=== PATIENT | female | born 1990 | race Caucasian/White ===

== ENCOUNTER 2022-06-09 14:34 | Emergency (ER) | payer OTHER, SELFPAY ==
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
[2022-06-09 14:35] VITALS: BP 132/90; PULSE 108; RESP 16; TEMP 37.2; O2SAT 98
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
== END 2022-06-09 16:10 | disposition home or self-care (01) ==
PROVIDERS: Emergency Provider Emergency Medicine; PCP Internal Medicine
DX: S09.90XA Unspecified injury of head, initial encounter (principal); S80.02XA Contusion of left knee, initial encounter; V43.52XA Car driver injured in collision with other type car in traffic accident, initial encounter
CPT/HCPCS: 70450; 99284

== ENCOUNTER → 2022-09-19 07:43 | Outpatient (CLI) | payer OTHER, BC, SELFPAY ==
--- NOTE | ~2022-09-19 | US_ITS ---
EXAMINATION: US OB <=14 wk fetus w TV DATE: 09/19/2022 08:24 INDICATION: Uncertain dates. . TECHNIQUE: Real-time transabdominal and transvaginal pelvic ultrasound was performed. COMPARISON: None. FINDINGS: TRANSABDOMINAL ULTRASOUND: The uterus measures 8.4 x 5.1 x 4.6 cm. TRANSVAGINAL ULTRASOUND: There is an intrauterine gestational sac. A yolk sac is identified. The fet al crown rump length measures 2 mm, which correlates with an estimated gestational age of 5 weeks and 5 day(s) (+/-) 4 day(s). heart motion is identified measuring 100 beats per minute (bpm) by M- mode Doppler. There is a nabothian cyst in the cervix. The right ovary measures 3.0 x 2.9 x 2.5 cm. T he left ovary measures 1.9 x 2.3 x 1.7 cm. There is no free fluid in the pelvis. IMPRESSION: 1. Single living intrauterine gestation with estimated date of delivery of 05/17/2023. Reviewed, dictated and finalized at location A. IMPRESSION: 1. Single living intrauterine gestation with estimated date of delivery of 05/06.
== END ==
PROVIDERS: PCP Internal Medicine; Visit Provider Obstetrics & Gynecology Gynecology
DX: Z36.87 Encounter for antenatal screening for uncertain dates (principal); Z3A.00 Weeks of gestation of pregnancy not specified
CPT/HCPCS: 76801; 76817

== ENCOUNTER → 2022-10-06 15:13 | Outpatient (CLI) | payer OTHER, BC, SELFPAY ==
--- NOTE | ~2022-10-06 | US_ITS ---
EXAMINATION: US OB <= 14 weeks fetus DATE: 10/06/2022 15:30 INDICATION: care during first trimester for patient with recurrent loss TECHNIQUE: Real-time pelvic ultrasound utilizing transabdominal probe was performed. The sumanth lockwood radiologist was not present for the study. COMPARISON: 09/19/2022 FINDINGS: The uterus measures 9.3 x 9.1 x 5.0 cm. There is an intrauterine gestational sac. A yolk sac and fet al pole are identified. The crown rump length measures 2.3 cm, which correlates with an estimated ges tational age of 9 weeks and 0 days. heart motion is identified measuring 171 beats per minute ( bpm) by M-mode Doppler. The right and left ovaries are not visualized. There is no free fluid in the pelvis. IMPRESSION: 1. Single living fetus heart rate of 171 bpm. 2. Gestational age by ultrasound of 9 weeks 0 day(s) +/- 6 day(s) with ultrasound estimated date of delivery (IRINEO) of 05/11/2023. Of note the IRINEO based upon the study from 2 weeks prior with 05/17/2023 nadine thomas review of the cine sequence on the prior imaging suggests the crown rump length that time may h ave been slightly underestimated. Reviewed, dictated and finalized at location A. IMPRESSION: 1. Single living fetus heart rate of 171 bpm. 2. Gestational age by ultrasound of 9 weeks 0 day(s) +/- 6 day(s) with ultraso und estimated date of delivery (IRINEO) of 05/11/2023. Of note the IRINEO based upon th e study from 2 weeks prior with 05/17/2023 however review of the cine sequence o n the prior imaging suggests the crown rump length that time may have been slig htly underestimated.
== END ==
PROVIDERS: PCP Obstetrics & Gynecology Gynecology; Visit Provider Obstetrics & Gynecology Gynecology
DX: O26.21 Pregnancy care for patient with recurrent pregnancy loss, first trimester (principal); Z3A.09 9 weeks gestation of pregnancy
CPT/HCPCS: 76801

== ENCOUNTER → 2022-12-11 14:55 | Outpatient (CLI) | payer OTHER, BC, SELFPAY ==
--- NOTE | ~2022-12-11 | US_ITS ---
EXAMINATION: US OB /maternal detail DATE: 12/11/2022 15:30 INDICATION: Second trimester anatomic survey TECHNIQUE: Real-time ultrasound of the pelvis was performed. COMPARISON: None. FINDINGS: There is a single living fetus in breech presentation. The placenta is anterior. heart rate is 149 beats per minute (bpm). cardiac activity and movement are noted. The amniotic fluid index is subjectively normal. The following anatomy was identified as normal: 4 chamber heart 3 vessel cord cord insertion kidneys urinary bladder stomach spine diaphragm ventricles cisterna magna cerebellum The following biometric data were obtained: Biparietal diameter (BPD): 3.9 cm; head circumference (HC): 15.2 cm; abdominal circumference (AC): 12 .6 cm; femur length (FL): 2.7 cm. These measurements are concordant. Estimated weight is 229 g +/- 34 g, which correlates with the 32 percentile when 05/11/2023 is us ed as estimated date of delivery. As single measurements, these parameters are each equal to the following estimated gestational ages w ith ranges of +/- 2 standard deviations: BPD: 18 weeks 0 days +/- 1 weeks 1 days. HC: 18 weeks 2 days +/- 1 weeks 3 days. AC: 18 weeks 2 days +/- 2 weeks 0 days. FL: 18 weeks 1 days +/- 1 weeks 3 days. estimated gestational age based solely on measurements from this exam is 18 weeks 1 days +/- 1 weeks 2 days. IMPRESSION: 1. Single living fetus in breech presentation. 2. Estimated weight is 229 g +/- 34 g, which correlates with the 32 percentile when 05/11/2023 is used as estimated date of delivery. Reviewed, dictated and finalized at location L. [place] [employer] IMPRESSION: 1. Single living fetus in breech presentation. 2. Estimated weight is 229 g +/- 34 g, which correlates with the 32 perce ntile when 05/11/2023 is used as estimated date of delivery.
== END ==
PROVIDERS: PCP Internal Medicine; Visit Provider Advanced Practice Midwife
DX: Z36.9 Encounter for antenatal screening, unspecified (principal); Z3A.18 18 weeks gestation of pregnancy
CPT/HCPCS: 76805

== ENCOUNTER 2023-04-16 19:45 | Outpatient (RCR) | payer OTHER, BC, SELFPAY ==
[2023-04-16 20:30] VITALS: BP 119/69; PULSE 86
== END 2023-07-15 23:59 | disposition home or self-care (01) ==
LOC: ANHOBOP 19:45
PROVIDERS: PCP Internal Medicine; Visit Provider Obstetrics & Gynecology Gynecology
DX: O36.8130 Decreased fetal movements, third trimester, not applicable or unspecified (principal); Z3A.36 36 weeks gestation of pregnancy
CPT/HCPCS: 59025

== ENCOUNTER 2023-05-07 02:11 | Inpatient (IN) | payer OTHER, BC, SELFPAY ==
[2023-05-07] VITALS (265 sets, daily range): BP systolic 83–155; BP diastolic 50–119; PULSE 62–196; RESP 16–18; TEMP 36.7–38.2; O2SAT 94–100; BMI 30.9
--- NOTE | 2023-05-07 02:11 | LDADM ---
This patient, Nicki Nair, was admitted to Labor/Delivery/Recovery 103 on 05/07/23 at 02:11. Plans for labor, pain management and were discussed with patient. Patient/family oriented to hospital policies and general routines including ID bracelet, bed and alarms, visiting hours, pain management, procedures, bathroom and other care routines, personal items, smoking policy, room service/diet and guest tray routines, security routines, and visiting hours. Patient/Family are encouraged to report perceived risks to care and to ask questions if they do not understand what they are told or what they should do. See OBIX for further documentation.
[2023-05-07] MEDS: LACTATED RINGERS 1,000 ML 125 ML IV CONT ×3 (04:13→13:17)
[2023-05-07 04:43] LABS: Basophils Absolute Auto 0.1 K/mm3 (0.0-0.1); Basophils Percent Auto 0.5 % (0.2-1.2); Eosinophils Absolute Auto 0.1 K/mm3 (0-0.3); Eosinophils Percent Auto 0.8 % (0-4.4); Hematocrit 36.4 % (37.0-47.0); Hemoglobin 11.2 g/dL (12.0-15.0); Immature Granulocyte Absolute 0.16 K/mm3 (0.00-0.031); Immature Granulocyte Percent A 1.2 % (0-0.5); Lymphocytes Absolute Auto 2.83 K/mm3 (0.9-3.2); Lymphocytes Percent Auto 21.9 % (18.3-44.2); Mean Corpuscular HGB Conc 30.8 g/dl (32-36); Mean Corpuscular Hemoglobin 25.1 pg (26-34); Mean Corpuscular Volume 81.4 fl (80-100); Mean Platelet Volume 11.6 fl (7.4-10.4); Monocytes Absolute Auto 1.3 K/mm3 (0.1-0.6); Neutrophils Absolute Auto 8.5 K/mm3 (1.3-6.7); Neutrophils Percent Auto 65.6 % (45.5-73.1); Platelet Count Result 238 k/mm3 (150-375); Red Blood Count 4.47 M/mm3 (4.2-5.4); Red Cell Distribution Width 14.5 % (11.5-14.5)
--- NOTE | 2023-05-07 05:02 | WPDANESEPP ---
Anes - Eval Pre Procedure Procedure: labor epidural Date/Time: 05/07/23 05:02 Surgeon: marek Preop Diagnosis: pain during labor Pre Op Diagnosis: CTX Patient Data Age: 32 Gender: F Height: 1.78 m Weight: 98 kg Last Vital Signs O2 Del Method Room Air 05/07/23 03:47 Allergies Allergy/AdvReac Type Severity Reaction Status Date / Time No Known Allergies Allergy Mild Verified 05/07/23 04:30 Home Medications Medication Instructions Recorded Confirmed Type prenat.vits,josette,sbx-[id number] 1 tablet PO DAILY 04/12/23 05/07/23 History docusate sodium 50 mg capsule 50 mg PO DAILY 05/07/23 05/07/23 History famotidine 20 mg tablet (Pepcid) 20 mg PO DAILY PRN Heartburn 05/07/23 05/07/23 History Laboratory Tests 05/07/23 03:56 WBC 13.0 H K/mm3 (4.5-10.0) RBC 4.47 M/mm3 (4.2-5.4) Hgb 11.2 L g/dL (12.0-15.0) Hct 36.4 L % (37.0-47.0) MCV 81.4 fl (80-100) MCH 25.1 L pg (26-34) MCHC 30.8 L g/dl (32-36) RDW 14.5 % (11.5-14.5) Plt Count 238 k/mm3 (150-375) MPV 11.6 H fl (7.4-10.4) Immature Gran % (Auto) 1.2 H % (0-0.5) Neut % (Auto) 65.6 % (45.5-73.1) Lymph % (Auto) 21.9 % (18.3-44.2) [place] % (Auto) 10.0 H % (2.6-8.5) Eos % (Auto) 0.8 % (0-4.4) Baso % (Auto) 0.5 % (0.2-1.2) Lymph # (Auto) 2.83 K/mm3 (0.9-3.2) [place] # (Auto) 1.3 H K/mm3 (0.1-0.6) Eos # (Auto) 0.1 K/mm3 (0-0.3) Baso # (Auto) 0.1 K/mm3 (0.0-0.1) Abs Immat Gran (auto) 0.16 H K/mm3 (0.00-0.031) Absolute Neuts (auto) 8.5 H K/mm3 (1.3-6.7) Absolute Nucleated RBC 0.000 K/mm3 (0.0-0.012) Nucleated RBC % 0.0 % (0.0-0.2) Sodium Pending Potassium Pending Chloride Pending Carbon Dioxide Pending Anion Gap Pending BUN Pending Creatinine Pending Estim Creat Clear Calc Pending Estimated GFR Pending Glucose Pending Uric Acid Pending Calcium Pending Total Bilirubin Pending AST Pending ALT Pending Alkaline Phosphatase Pending Total Protein Pending Albumin Pending RPR Pending HIV 1&2 Ab/P24 Ag 4thGn Pending Patient hx anesthesia problems: post op nausea/vomiting Family hx anesthesia problems: none Results Review: All pre-operative results and documents have been reviewed as part of the pre-operative evaluation. [facility] Past Medical History Medical History (Updated 05/07/23 @ 05:03 by Eduarda Lozaon CRNA) Healthy adult Hx of migraines IUP (intrauterine ), incidental Surgical History Surgical History (Updated 06/09/22 @ 16:06 by Toby Veliz MD) No history of previous surgery Family History Family History (Updated 04/12/23 @ 14:44 by Soraida Ahn RN) Other Patient denies significant medical history Social History Social History Smoking status: Never smoker Substance use: never Do You Feel Safe in your Home?: Yes Lack of Transportation: No Lack of Food: Never True Current Housing: I Have Housing Concerned About Future Housing: No Difficulty Paying Gas/Electric Bills: No Difficulty Paying for Meds: No Currently Unemployed: No Education: Bachelor's Degree Difficulty w/ Childcare or Family Care: No Spiritual care concerns: No Exam Day of Procedure 05/07/23 05:02
[2023-05-07 05:04] LABS: Alanine Aminotransferase 12 U/L (6-35); Albumin Level 3.6 g/dL (3.5-5.1); Alkaline Phosphatase 228 U/L (38-126); Anion Gap 3 mmol/L (4-12); Aspartate Amino Transferase 19 U/L (14-36); Bilirubin,Total 0.3 mg/dL (0.2-1.3); Blood Urea Nitrogen 11 mg/dL (7-17); Calcium 8.8 mg/dL (8.4-10.2); Carbon Dioxide 23 mmol/L (22-30); Chloride 106 mmol/L (98-107); Estimated CRCL calculation 125 ml/min; Estimated Glomerular Filt Rate > 60; Glucose 97 mg/dL (65-110); Potassium 3.9 mmol/L (3.4-5.0); Sodium 132 mmol/L (137-145)
[2023-05-07 05:06] LABS: Uric Acid 3.4 mg/dL (2.5-7.5)
[2023-05-07 05:40] LABS: HIV 1/2 Ab P24 Ag Result Negative (Negative)
--- NOTE | 2023-05-07 08:55 | WPDOBADMIT ---
Obstetrics - Admit Note Admission Note: record reviewed. No pertinent additions to the history and/or any subsequent changes in the physical findings that are not consistent with the expected course of the were found. Additions to the history and/or subsequent changes in the physical findings follow. None. The patient is here in active labor. She was now 6cm with spontaneous rupture of membranes. heart tones are category 1.
[2023-05-07] MEDS: OXYTOCIN 30 UNITS/NS 500 ML 30 UNITS/500 ML BAG IV CONT (10:29)
[2023-05-07] MEDS: ONDANSETRON INJ 4 MG/2 ML VIAL IV PUSH (15:06)
[2023-05-07 15:31] LABS: Rapid Plasma Reagin Non-Reactive (NonReactive)
[2023-05-07] MEDS: OXYTOCIN 30 UNITS/NS 500 ML 30 UNITS/500 ML BAG 125 UNITS IV CONT (19:44)
--- NOTE | 2023-05-07 20:49 | PM.OBPRVD ---
OB - Vaginal Delivery Note Procedure Delivery date: 05/07/23 Induction method: None Delivery augmentation: Pitocin Delivery monitor: External FHT and External Uterine Route of delivery: Laceration Description: Perineal - 2nd Degree Delivery repair: vicryl (3-0) Specimen: Yes (placenta) Quantitative Blood Loss (ml): 100 Anesthesia type: Epidural Disposition: Floor Complications: No immediate complications [place] Baby Date of : 05/07/23 Weeks of gestation at delivery: 39 Infant gender: Female presentation: vertex position: Left Occiput Anterior Placenta delivery description: Spontaneous Cord Vessel Description: 3 Vessels and Nuchal Cord score one minute: 8 score five minutes: 8
--- NOTE | 2023-05-07 20:50 | PM.OBDSVD ---
DS: Admitting Diagnosis Discharge Date 05/08/23 Admitting Diagnosis IUP 39 wks in labor DS: Discharge Diagnosis Discharge Diagnosis (1) (normal spontaneous vaginal delivery): Code(s): O80 - Encounter for full-term uncomplicated delivery Status: Acute OB - DS: Summary OB Procedures : Ultrasound OB Procedures Intrapartum: Spontaneous Vag Delivery OB Procedures: : None Peripartum Data Infant Delivery Method: Natural Vaginal Laceration Description: Perineal - 2nd Degree complications: none Status at Discharge Functional status at discharge: independent ambulation Overall status at discharge: patient is progressing back to baseline Time Spent with Patient Time attestation: Total time spent providing and/or coordinating discharge services: DS: Data Data Completed and Pending Pending studies at discharge: Pending at discharge 05/07/23 19:15 Surgical [PTH] Routine Labs on day of discharge: Labs from last 24 hours 05/07/23 03:56 WBC 13.0 H RBC 4.47 Hgb 11.2 L Hct 36.4 L MCV 81.4 MCH 25.1 L MCHC 30.8 L RDW 14.5 Plt Count 238 MPV 11.6 H Immature Gran % (Auto) 1.2 H Neut % (Auto) 65.6 Lymph % (Auto) 21.9 [place] % (Auto) 10.0 H Eos % (Auto) 0.8 Baso % (Auto) 0.5 Lymph # (Auto) 2.83 [place] # (Auto) 1.3 H Eos # (Auto) 0.1 Baso # (Auto) 0.1 Abs Immat Gran (auto) 0.16 H Absolute Neuts (auto) 8.5 H Absolute Nucleated RBC 0.000 Nucleated RBC % 0.0 Sodium 132 L Potassium 3.9 Chloride 106 Carbon Dioxide 23 Anion Gap 3 L BUN 11 Creatinine 0.70 Estim Creat Clear Calc 125 Estimated GFR > 60 Glucose 97 Uric Acid 3.4 Calcium 8.8 Total Bilirubin 0.3 AST 19 ALT 12 Alkaline Phosphatase 228 H Total Protein 7.0 Albumin 3.6 RPR Non-reactive HIV 1&2 Ab/P24 Ag 4thGn Negative Blood Type A Negative Antibody Screen Negative Discharge Plan Discharge Attending physician on discharge: Diana Gonzalez Discharging Clinician: Diana Gonzalez Anticipated Discharge Date/Time: 05/09/23 20:52 Patient Disposition: Home, Self-Care Activity: may shower and as tolerated Diet: regular Discharge Instructions: Education: Mom and Baby Guide Given to: Mother Follow-Up: Call your delivering provider's office for an appointment to be seen in: 6 Weeks Mom and baby should come to the [facility] for the follow-up appointment. Appointment Date/Time: May 09, 2023 at 10:00 am What to expect at your follow-up visit: Blood Pressure Check Physical Assessment Call [phone] if you are unable to keep your appointment time. BREAST CARE: * Wear a snug supportive bra. * For engorgement discomfort: Breast Feeding: * Apply warm moist washcloths * Express milk as needed to relieve engorgement * Wear loose clothing Bottle Feeding: * May apply ice packs * For sore nipples: * Identify correct latch-on * Apply warm moist washcloths before and after nursing * Air dry nipples after nursing * May apply Lansinoh cream to nipples EPISIOTOMY/PERINEAL CARE: * Until bleeding stops, use your loren bottle after urinating * Change your pad frequently throughout the day * You may take sitz baths several times a day (fill your bathtub with warm water and soak for 20 minutes.) Do NOT bathe in the water * No tub baths until seen by your physician - You may shower ACTIVITY: * Rest as much as possible. * Do not exercise or lift anything heavier than your baby (such as laundry or other children.) * Avoid stairs or driving as much as possible. * Do not put anything into the vagina. No douching, tampons, or sexual activity until seen by physician. NOTIFY PHYSICIAN IF YOU HAVE ANY QUESTIONS OR IF ANY OF THE FOLLOWING SYMPTOMS OCCUR: * If your episiotomy or incision becomes red, swollen, or more painful than what you have experienced in the hosp
[2023-05-07] MEDS: WITCH HAZEL 40 PADS 1 PAD TOPICAL (21:21)
[2023-05-07] MEDS: BENZOCAINE 20% AER SPR (*SP) 56 GM CAN 1 SPRAY TOPICAL (21:21)
--- NOTE | 2023-05-07 21:41 | OBPPTRN ---
Patient transferred to post room #285 via wheelchair. Support person present. Oriented to unit, room, information board, rooming in, admission packet and security measures. Patient verbalizes understanding.
[2023-05-07] MEDS: IBUPROFEN 600 MG TABLET PO (21:55)
[2023-05-08] MEDS: ACETAMINOPHEN 325 MG TABLET 650 MG PO (00:30)
[2023-05-08 04:05] VITALS: BP 126/79; PULSE 77; RESP 18; TEMP 36.6; O2SAT 96
[2023-05-08 04:45] LABS: Hematocrit 33.7 % (37.0-47.0); Hemoglobin 10.4 g/dL (12.0-15.0)
--- NOTE | 2023-05-08 07:43 | PM.OBPNVD ---
OB - PN: Subj Subjective Date/time seen: 05/08/23 07:43 Patient comments: no complaints and pain well controlled baby status: doing well OB - PN: Obj Data Labs 05/08/23 03:54 05/07/23 03:56 Labs: Laboratory Results - last 24 hr 05/07/23 05/08/23 03:56 03:54 Hgb 10.4 L Hct 33.7 L RPR Non-reactive OB - PN A/P Plan day: 1 Plan: routine care Time Spent With Patient Time: Total time spent is greater than 50% in coordination of care (as documented) at patient's floor/unit and/or counseling patient: Exam : Bimanual exam- vagina & uterus: other (Uterus firm, nt @U)
[2023-05-08 07:50] VITALS: BP 113/66; PULSE 72; RESP 16; TEMP 37; O2SAT 99
--- NOTE | 2023-05-08 08:15 | WPDANLDPN2 ---
Anes-Prog Note L&D Date/Time: 05/08/23 08:15 Comfortable throughout: labor and delivery Neuraxial method: epidural Epidural/Spinal procedure site: clean & non-tender Neuro status: Neuro function grossly intact. Cardiovascular status: normal Respiratory status: normal Airway patency: baseline Mental status: baseline Post-Op hydration status: normal Vital Signs: Last Vital Signs Temp 97.9 F 05/08/23 04:05 Pulse 77 05/08/23 04:05 Resp 18 05/08/23 04:05 BP 126/79 05/08/23 04:05 Pulse Ox 96 05/08/23 04:05 O2 Del Method Room Air 05/07/23 03:47 Pain score (VAS): 0/10 I/O: Intake & Output 05/07/23 05/08/23 05/08/23 23:59 07:59 15:59 Intake Total 1000 Output Total 100 Balance 900 Post-procedural complaints: none Patient feedback: Patient satisfied with anesthetic care.
[2023-05-08] MEDS: DOCUSATE SODIUM 100 MG CAPSULE PO (08:31)
[2023-05-08] MEDS: MULTIVIT/MIN/PREN/FOL AC/IRON TABLET 1 TAB PO (08:31)
[2023-05-08] MEDS: IBUPROFEN 600 MG TABLET PO (08:31)
--- NOTE | 2023-05-08 10:40 | PC.NURSE ---
Mom consented for baby to receive Vitamin K shot.
--- NOTE | 2023-05-08 11:08 | PC.NURSE ---
[id number] Introductions were made, then consulted with patient to assess needs related to . Mother led the conversation with her?plans to feed?her infant and the?experience so far. Encouraged understanding of the benefits of skin to skin (demonstrating unwrapping and placing upright on her chest), stimulating with massage touch, changing positions to encourage wakefulness, how to watch for early feeding cues, responsive feeding, feeding on demand (aiming for 8-12 times in 24 hours, about every 2-3 hours), milk production, hand expression, building/maintaining a milk supply, duration of feeding, signs of adequate intake/output and how to record on the feeding sheet. Mother works well with her infant with encouragement and education. Reviewed positioning and ear, shoulder, hip alignment, supporting the breast to facilitate a deep latch, asymmetrical latch (off-center), leading with the chin with a big, open, wide gape and body close to mother. latched optimally to the left, then right breast in cross cradle position, then left breast with football positioning. Education given to the parents of how to visualize the suckling (with good rocking jaw motion), swallows (dropping of the lower jaw) and how to listen for drinking at the breast (the ka sound) and infant demonstrated well. Infant was able to maintain latch without pain to mother protecting the nipple with optimal positioning and latching, however; the nipple was pinched after each latch. Mother shared it is uncomfortable but not painful and rates the pain 5 on 0-10 scale. Reviewed comfort measures of healing with a warm, wet washcloth to rinse breast, then leave open to air-dry, good handwashing when or touching the breast/nipples to prevent infection. Recommended switching positioning of the latch to prevent injury to the nipple. Mother voiced understanding of skin to skin, stimulating with massage touch, responsive feedings, hand expressed colostrum, talking to infant to encourage if it has been 2 -2.5 hours since the start of the last , to call if does not latch, or if there is discomfort with . Resources used for education were facilitated with the visual educational handouts/ tool/mom and baby guide. Inpatient/outpatient resources provided with feeding sheet, name written on the communication board, and the mom/baby guide. Parents voiced understanding of information, demonstrated learning and will call if there is a request for assistance. Patient encouraged to call for assistance with . Reported to the Primary RN.
[2023-05-09 09:47] VITALS: BP 131/76; PULSE 79; RESP 18; TEMP 36.6; O2SAT 100
== END 2023-05-08 11:30 | disposition home or self-care (01) | DRG 806 ==
LOC: ANHLDR 20:52 → ANHOB2 21:52
PROVIDERS: Admitting Provider Obstetrics & Gynecology Gynecology; PCP Internal Medicine; Visit Provider Obstetrics & Gynecology Gynecology
DX: O69.81X0 Labor and delivery complicated by cord around neck, without compression, not applicable or unspecified (principal); O75.2 Pyrexia during labor, not elsewhere classified; Z37.0 Single live birth; Z3A.39 39 weeks gestation of pregnancy; O70.1 Second degree perineal laceration during delivery; O63.1 Prolonged second stage (of labor)
CPT/HCPCS: 36415; 80053; 84550; 85014; 85018; 85025; 86592; 86703; 86850; 86900; 86901; 88307; A9270; G0432; J2405; J2590; J7120

== ENCOUNTER 2023-09-21 09:17 | Outpatient (CLI) | payer OTHER, BC, SELFPAY ==
--- NOTE | ~2023-09-21 | US_ITS ---
EXAMINATION: US OB <=14 wk fetus w TV DATE: 09/21/2023 10:08 INDICATION: Establish dating of first trimester with positive test TECHNIQUE: Real-time pelvic ultrasound utilizing both a transvaginal and transabdominal probe was pe rformed. The interpreting radiologist was not present for the study. COMPARISON: None. FINDINGS: The uterus measures 8.6 x 5.3 x 4.4 cm. There is an intrauterine gestational sac with double decidua l sign and subtle thin linear internal echogenic structure but without definitive yolk sac or p ole.The mean sac diameter measures 1 cm which correlates with an estimated gestational age of 5 weeks and 5 days. There is a 1.3 x 1.0 x 0.6 similar hypoechoic subchorionic hematoma along the anterior m argin of the gestational sac. The right ovary measures 2.7 x 2.5 x 2.3 cm. The left ovary measures 2.3 x 1.7 x 1.6 cm. Vascular marshall w identified in both ovaries on color Doppler There is no free fluid in the pelvis. IMPRESSION: 1. Single intrauterine gestational sac with double decidual sign but no definitive yolk sac or pole. Which could be due to early stage of or failed . Recommend follow-up with se rial beta-hCG levels and consider short interval repeat ultrasound. 2. Gestational age by ultrasound based upon mean sac diameter of 5 weeks 5 day(s) +/- 4 day(s) with ultrasound estimated date of delivery (IRINEO) of 05/18/2024. Reviewed, dictated and finalized at location A. IMPRESSION: 1. Single intrauterine gestational sac with double decidual sign but no definit jose yolk sac or pole. Which could be due to early stage of or f tiffanie . Recommend follow-up with serial beta-hCG levels and consider s hort interval repeat ultrasound. 2. Gestational age by ultrasound based upon mean sac diameter of 5 weeks 5 day (s) +/- 4 day(s) with ultrasound estimated date of delivery (IRINEO) of 05/18/2024.
== END 2023-09-21 09:18 ==
LOC: GOSHIMG 09:18
PROVIDERS: PCP Obstetrics & Gynecology Gynecology; Visit Provider Obstetrics & Gynecology Gynecology
DX: Z32.01 Encounter for pregnancy test, result positive (principal)
CPT/HCPCS: 76801; 76817

== ENCOUNTER 2023-10-01 11:18 | Outpatient (CLI) | payer OTHER, BC, SELFPAY ==
--- NOTE | ~2023-10-01 | US_ITS ---
EXAMINATION: US OB <=14 wk fetus w TV DATE: 10/01/2023 11:46 INDICATION: Recurrent loss. TECHNIQUE: Real-time transabdominal and transvaginal pelvic ultrasound was performed. COMPARISON: Ultrasound 09/21/2023 FINDINGS: TRANSABDOMINAL ULTRASOUND: The uterus measures 8.6 x 6.7 x 5.5 cm. TRANSVAGINAL ULTRASOUND: There is an intrauterine gestational sac. A yolk sac is identified. The fet al crown rump length measures 9 mm, which correlates with an estimated gestational age of 7 weeks and 0 day(s) (+/-) 4 day(s). heart motion is identified measuring 140 beats per minute (bpm) by M- mode Doppler. There is a small subchronic hematoma. The right ovary measures 2.7 x 2.7 x 1.8 cm. The left ovary measures 1.8 x 1.3 x 2.3 cm. There is no free fluid in the pelvis. IMPRESSION: 1. Single living intrauterine gestation with estimated date of delivery of 05/19/2024. 2. Small subchorionic hematoma. Reviewed, dictated and finalized at location A. IMPRESSION: 1. Single living intrauterine gestation with estimated date of delivery of 05/06. 2. Small subchorionic hematoma.
== END 2023-10-01 11:19 ==
LOC: GOSHIMG 11:19
PROVIDERS: PCP Obstetrics & Gynecology Gynecology; Visit Provider Obstetrics & Gynecology Gynecology
DX: O26.21 Pregnancy care for patient with recurrent pregnancy loss, first trimester (principal); Z3A.00 Weeks of gestation of pregnancy not specified
CPT/HCPCS: 76801; 76817

== ENCOUNTER 2023-10-30 15:27 | Outpatient (CLI) | payer OTHER, BC, SELFPAY ==
--- NOTE | ~2023-10-30 | US_ITS ---
EXAMINATION: US OB <= 14 weeks fetus DATE: 10/30/2023 16:00 INDICATION: Subchorionic hematoma during the late first trimester TECHNIQUE: Real-time pelvic ultrasound utilizing both a transvaginal and transabdominal probe was pe rformed. The interpreting radiologist was not present for the study. COMPARISON: None. FINDINGS: The uterus measures 12.9 x 10.0 x 7.7 cm. There is an intrauterine gestational sac with single livin g fetus. The crown rump length measures 5.0, which is concordant within 4 days of the previously jay mated gestational age of 11 weeks and 1 days. heart motion is identified measuring 155 beats pe r minute (bpm) by M-mode Doppler. No evident subchorionic hematoma. The bilateral ovaries are not vis ualized. There is no free fluid in the pelvis. IMPRESSION: 1. Single living fetus with heart rate of 155 bpm. No evident subchorionic hematoma. 2. [place]-rump length of 5.0 cm which is concordant within 4 days of the previously estimated gestatio nal age by ultrasound of 11 weeks 1 day with ultrasound estimated date of delivery (IRINEO) of 05/19/2024 . Reviewed, dictated and finalized at location A. IMPRESSION: 1. Single living fetus with heart rate of 155 bpm. No evident subchorioni c hematoma. 2. [place]-rump length of 5.0 cm which is concordant within 4 days of the previou sly estimated gestational age by ultrasound of 11 weeks 1 day with ultrasound e stimated date of delivery (IRINEO) of 05/19/2024.
== END 2023-10-30 15:28 | disposition home or self-care (01) ==
LOC: GOSHIMG 15:28
PROVIDERS: PCP Obstetrics & Gynecology Gynecology; Visit Provider Obstetrics & Gynecology Gynecology
DX: O36.8910 Maternal care for other specified fetal problems, first trimester, not applicable or unspecified (principal); Z3A.11 11 weeks gestation of pregnancy
CPT/HCPCS: 76801

== ENCOUNTER 2023-12-20 13:47 | Outpatient (CLI) | payer OTHER, BC, SELFPAY ==
--- NOTE | ~2023-12-20 | US_ITS ---
EXAMINATION: US OB /maternal detail DATE: 12/20/2023 14:32 INDICATION: anatomic survey. TECHNIQUE: Real-time ultrasound of the pelvis was performed. COMPARISON: Ultrasound 10/30/2023 FINDINGS: There is a single living fetus in vertex presentation. The cervical length is 3.8 cm on transabdomina l images, which is normal. The placenta is fundal, 8.1 cm from the cervix. heart rate is 139 be ats per minute (bpm). The amniotic fluid volume is subjectively normal. The following biometric data were obtained: Biparietal diameter (BPD): 4.5 cm; head circumference (HC): 17.1 cm; abdominal circumference (AC): 13 .1 cm; femur length (FL): 2.6 cm. These measurements are discordant with high HC/AC ratio. Estimated weight is 242 g +/- 36 g, which correlates with the 49th percentile when 05/19/24 is u sed as estimated date of delivery. As single measurements, these parameters are each equal to the following estimated gestational ages: BPD: 19 weeks 4 days. HC: 19 weeks 5 days. AC: 18 weeks 4 days. FL: 18 weeks 0 days. estimated gestational age based solely on measurements from this exam is 19 weeks 0 days +/- 1 weeks 2 days. The cerebral ventricles, cerebellum, cisterna magna, nuchal fold, and spine are normal. The heart is normal. The diaphragm, stomach, kidneys, and bladder are normal. There are two umbilical arteries to yield a 3-vessel cord. The cord insertion is normal. IMPRESSION: 1. Single living fetus in vertex presentation. 2. Estimated weight is 242 g +/- 36 g, which correlates with the 49th percentile when 05/19/24 is used as estimated date of delivery. This date was set by ultrasound on 10/01/23. 3. Discordant biometrics with high HC/AC ratio. 4. Normal anatomic survey. Reviewed, dictated and finalized at location A. JELLY IMPRESSION: 1. Single living fetus in vertex presentation. 2. Estimated weight is 242 g +/- 36 g, which correlates with the 49th pe rcentile when 05/19/24 is used as estimated date of delivery. This date was set by ultrasound on 10/01/23. 3. Discordant biometrics with high HC/AC ratio. 4. Normal anatomic survey.
== END 2023-12-20 13:48 | disposition home or self-care (01) ==
LOC: GOSHIMG 13:48
PROVIDERS: PCP Obstetrics & Gynecology Gynecology; Visit Provider Obstetrics & Gynecology Gynecology
DX: Z36.9 Encounter for antenatal screening, unspecified (principal)
CPT/HCPCS: 76805

== ENCOUNTER 2024-03-03 10:09 | Outpatient (RCR) | payer OTHER, BC, SELFPAY ==
[2024-03-03 10:45] LABS: Hematocrit 31.7 % (37.0-47.0); Hemoglobin 9.6 g/dL (12.0-15.0)
--- OUTSIDE RECORDS SUMMARY | 2024-03-03 11:06 | XMS_ITS | Referral Summary ---
Author Organization [facility] Building A Address [address] [place] [address] Care Team Providers Care Orthopedic Shoes Salesperson Name Role Phone Jose Raymundo MD Primary Care Provider Encounters Date Type Department Care Team Description 02/20/2024 Telephone [facility] Primary Care at [address] [phone] Jose Raymundo MD 02/19/2024 10:35 AM STEEL HEATER Lab [facility] [address] [place] [address] Goiter 02/19/2024 9:30 AM STEEL HEATER Office Visit [facility] Primary Care at [address] [phone] Jose Raymundo MD Annual physical exam (Primary Dx); BMI 28.0-28.9,adult; Migraine without aura and without status migrainosus, not intractable; Insulin controlled gestational diabetes mellitus (GDM) in second trimester; Goiter from Last 3 Months Allergies No known active allergies Medications butalbital-luis a taminophen-caf feine (FIORICET) 50-300-40 mg per capsule TAKE ONE CAPSULE BY MOUTH EVERY 6 HOURS NEEDED FOR HEADACHE 01/07/20 24 Active HumuLIN N 100 unit/mL (3 mL) pen for injection ADMINISTER 18 UNITS UNDER THE SKIN EVERY NIGHT AT BEDTIME. INCREASE BY 3 UNITS EVERY NIGHT UNTIL FASTING BLOOD SUGAR BELOW 90- 02/02/20 24 Active escitalopram (LEXAPRO) 10 mg tablet Take 1 tablet (10 mg total) by mouth daily 02/11/19 25 Active SUMAtriptan (IMITREX) 100 mg tablet TAKE 1 TABLET(100 MG) BY MOUTH 1 TIME NEEDED FOR MIGRAINE 9 tablet 11 10/29/19 24 025 Discontinued Active Problems Problem Noted Date Diagnosed Date History of 2019 novel coronavirus disease (COVID -19) 02/08/2021 RUQ pain 11/10/2020 Assessment & Plan (11/10/2020 2:28 PM CDT): Will get right upper quadrant ultrasound. We discussed watching fatty food intake. Difficult to point her symptoms to her gallbladder from her history but she was a little tender on exam. Will call patient with findings of ultrasound once obtained. Intrinsic eczema 02/04/2020 Migraine without aura and wi thout status migrainosus, not intractable 01/30/2019 Arachnoid cyst 12/08/2009 Resolved Problems Problem Noted Date Diagnosed Date Resolved Date Injury due to exposure to external cause 10/21/2014 01/30/2019 Infectious disease contact 10/21/2014 1 04/02/2018 Migraine 08/19/2013 01/30/2019 Overview (05/12/2016): MIGRNE UNSP WO NTRC MGRN Atypical migraine 03/16/2010 01/30/2019 Immunizations Name Administration Dates Next Due DTP 09/11/1994, 1,02/08/1990,1989,0 1989 Hep B, Adolescent or Pediatric 08/10/1999,1998,12/07/1998 HiB 10/01/1990,04/02/1990 Influenza, Unspecified 02/19/2024(Deferr ed: Patient Refused),02/10/2022(Deferred: Patient Refused),02/08/2021(Deferred: Patient Refused),02/08/2021(Deferred: Patient Refused),11/05/2020(Deferred: Patient Refused),10/05/2020(Deferred: Patient Refused),09/08/2020(Deferred: Patient Refused),02/04/2020(Deferred: Patient Refused),11/06/2019(Deferred: Patient Refused),01/30/2019(Deferred: Patient Refused),11/05/2018(Deferred: Patient Refused),01/25/2018(Deferred: Patient Refused),11/05/2017(Deferred: Patient Refused) MMR 09/11/1994,10/01/1990 OPV 09/11/1994,12/17/1990 Tdap 04/30/2007 Social History Tobacco Use Types Packs/Day Years Used Date Smoking Tobacco: Never Smokeless Tobacco: Never Tobacco Cessation:Counseling Given: Not Answered Alcohol Use Standard Drinks/Week Comments No 0 (1 standard drink = 0.6 oz pur e alcohol) AUDIT-C Answer Date Recorded Q1: How often do you have a drink containing alcohol? Never 02/14/2023 Q2: How many drinks containi ng alcohol do you have on a typical day when you are drinking? Patient does not drink Q3: How often do you have si x or more drinks on one occasion? Never 02/14/2023 PHQ-2 Answer Date Recorded PHQ-2 Total Score (If total score is 3 or more points, staff should administer the PHQ-9) 0 02/19/2024 Comments No Sex and Gender Information Value Date Recorded Sex Assigned at Not on file Legal Sex Female 9:01 AM STEEL HEATER Gender Identity Female 02/03/2020 7:22 PM STEEL HEATER Sexual Orientation Straight 02/03/2020 7: 22 PM STEEL HEATER Last Filed Vital Signs Vital Sign Reading Time Taken Comments Blood Pressure 132/70 02/19/2024 9:38 AM STEEL HEATER Pulse 84 02/19/2024 9:38 AM STEEL HEATER Temperature 36.6 ??C (97.8 ??F) 02/19/2024 9:38 AM CS T Respiratory Rate 16 02/19/2024 9:38 AM STEEL HEATER Oxygen Saturation 99% 02/19/2024 9:38 AM STEEL HEATER Inhaled Oxygen Concentration - - Weight 92.5 kg (204 lb) 02/19/2024 9:38 AM STEEL HEATER Height 180.3 cm (5' 11 ) 02/19/2024 9:38 AM STEEL HEATER Body Mass Index 28.45 02/19/2024 9:38 AM STEEL HEATER Plan of Treatment Not on file Procedures Procedure Name Priority Date/Time Associated Diagnosis Comments TSH Routine 02/19/2024 10:38 AM STEEL HEATER Goiter HM PAP SMEAR WITH HPV Routine 07/24/2019 from Last 3 Months or Most Recently Relevant to Health Maintenance Results * TSH (02/19/2024 10:38 AM STEEL HEATER) Thyroid Stimulating Hormone 1.20 0.30 - 4.20 mcIUnit/mL Blood 02/19/2024 10:3 8 AM STEEL HEATER 02/19/2024 11:06 AM STEEL HEATER Jose Raymundo MD LAB BLOOD ORDERABLES nal Result Performing Organization Address City/State/[facility] Co de Phone Number [facility] ([place]) [address] [facility] Department [place] [address] * HM PAP SMEAR WITH HPV (07/24/2019) Historical Provider HEALTH MAINTENANCE Final Result from Last 3 Months or Most Recently Relevant to Health Maintenance Insurance [facility] CHOICE PLUS Member Subscriber Plan / Payer (Ef fective 2016-Present) Name:STEPHANIE MELCHOR Relation to Subscriber:Self Name:Stephanie Potts Payer ID:[id number] (NAIC) Type:[facility] HMO/PPO Address: [address] [facility] CHOICE [place] [employer] [place] [employer] [place] [facility] [employer] Care Teams Orthopedic Shoes Salesperson Relationship Specialty Start Date End Date Jose Raymundo MD PCP - General 10/23/09
--- OUTSIDE RECORDS SUMMARY | 2024-03-03 11:06 | XMS_ITS | Clinical Summary ---
Author Organization [facility] Medical Office Building A Address [address] [place] [address] Care Team Providers Care Farm Service Adviser Name Role Phone Jose Raymundo MD Primary Care Provider Allergies No known active allergies Medications butalbital-luis [...] WO NTRC MGRN Atypical migraine 03/16/2010 01/30/2019 Encounters Date Type Department Care Team Description 02/20/2024 Telephone [facility] Primary Care at [address] [phone] Jose Raymundo MD 02/19/2024 10:35 AM SHAFT MECHANIC Lab [address] [phone] Goiter 02/19/2024 9:30 AM SHAFT MECHANIC Office Visit [facility] Primary Care at [address] [phone] Jose Raymundo MD Annual physical exam (Primary Dx); BMI 28.0-28.9,adult; Migraine without aura and without status migrainosus, not intractable; Insulin controlled gestational diabetes mellitus (GDM) in second trimester; Goiter from Last 3 Months Immunizations Name Administration Dates Next Due DTP 09/11/1994, 1,02/08/1990,1989,0 1989 Hep B, Adolescent or Pediatric 08/10/1999,1998,12/07/1998 HiB 10/01/1990,04/02/1990 Influenza, Unspecified 02/19/2024(Deferr ed: Patient Refused),02/10/2022(Deferred: Patient Refused),02/08/2021(Deferred: Patient Refused),02/08/2021(Deferred: Patient Refused),11/05/2020(Deferred: Patient Refused),10/05/2020(Deferred: Patient Refused),09/08/2020(Deferred: Patient Refused),02/04/2020(Deferred: Patient Refused),11/06/2019(Deferred: Patient Refused),01/30/2019(Deferred: Patient Refused),11/05/2018(Deferred: Patient Refused),01/25/2018(Deferred: Patient Refused),11/05/2017(Deferred: Patient Refused) MMR 09/11/1994,10/01/1990 OPV 09/11/1994,12/17/1990 Tdap 04/30/2007 Medical History Medical History Date Comments 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 Family History Medical History Relation Name Comments Other Brother 2 Alive and well; Other Father Alive and well; Hypertension Mother Hypertension; Cancer Mother's Sister Relation Name Status Comments Brother 1 Alive Brother 2 Father Alive Mother Mother's Sister Social History Tobacco Use Types Packs/Day Years [...] on file Legal Sex Female 9:01 AM SHAFT MECHANIC Gender Identity Female 02/03/2020 7:22 PM SHAFT MECHANIC Sexual Orientation Straight 02/03/2020 7: 22 PM SHAFT MECHANIC Obstetrics History Last Filed Vital Signs Vital Sign Reading Time Taken Comments Blood Pressure 132/70 02/19/2024 9:38 AM SHAFT MECHANIC Pulse 84 02/19/2024 9:38 AM SHAFT MECHANIC Temperature 36.6 ??C (97.8 ??F) 02/19/2024 9:38 AM CS T Respiratory Rate 16 02/19/2024 9:38 AM SHAFT MECHANIC Oxygen Saturation 99% 02/19/2024 9:38 AM SHAFT MECHANIC Inhaled Oxygen Concentration - - Weight 92.5 kg (204 lb) 02/19/2024 9:38 AM SHAFT MECHANIC Height 180.3 cm (5' 11 ) 02/19/2024 9:38 AM SHAFT MECHANIC Body Mass Index 28.45 02/19/2024 9:38 AM SHAFT MECHANIC Plan of Treatment Health Maintenance Due Date Last Done Comments Hepatitis C Screening 1989 Varicella Vaccines (1 of 2 - 13+ 2-dose series) 2002 DTaP/Tdap/Td Vaccine (7 - Td or Tdap) 04/29/2017 04/30/2007, 09/11/1994, 12/17/1990, Additional history exists Cervical Cancer Screening 07/23/2020 07/24/2019, Influenza Vaccine (#1) 2023 Depression Screening 02/18/2025 02/19/2024, 02/14/2023, 02/10/2022, Additional history exists Regular Well Visit/Exam 18-64 02/18/2025 02/19/2024, 02/14/2023, 02/10/2022, Additional history exists HPV Vaccines Aged Out No longer eligi ble based on patient's age to complete this topic Pneumococcal vaccine <65 Aged Out No longer eligible based on patient's age to complete this topic Procedures Procedure Name Priority Date/Time Associated Diagnosis Comments TSH Routine 02/19/2024 10:38 AM SHAFT MECHANIC Goiter HM PAP SMEAR WITH HPV Routine 07/24/2019 from Last 3 Months or Most Recently Relevant to Health Maintenance Results * TSH (02/19/2024 10:38 AM SHAFT MECHANIC) Thyroid Stimulating Hormone 1.20 0.30 - 4.20 mcIUnit/mL Blood 02/19/2024 10:3 8 AM SHAFT MECHANIC 02/19/2024 11:06 AM SHAFT MECHANIC us Jose Raymundo MD LAB BLOOD ORDERABLES Fi nal Result [facility]) 1 [facility] Department [place] [address] * HM PAP SMEAR WITH HPV (07/24/2019) us Historical Provider HEALTH MAINTENANCE Final Result from Last 3 Months or Most Recently Relevant to Health Maintenance Insurance [facility] CHOICE PLUS Member Subscriber Plan / Payer (Ef fective 2016-Present) Name:STEPHANIE MELCHOR Relation to Subscriber:Self Name:Stephanie Potts Payer ID:[id number] (NAIC) Type:[employer] HMO/PPO Address: [address] [facility] CHOICE PLUS [employer] [place] [place] [employer] [place] [place] Member Subscriber Plan / Payer (Ef fective 2019-Present) Name:Stephanie Potts Relation to Subscriber:Spouse Name:CECY POTTS Date of :1986 (Home) Address: [address] [place] [address] Payer ID:[id number] (NAIC) Type:BC OTHER Address: [id number] [employer] Care Teams Farm Service Adviser Relationship Specialty Start Date End Date Jose Raymundo MD PCP - General 10/23/09
--- OUTSIDE RECORDS SUMMARY | 2024-03-03 11:06 | XMS_ITS | Clinical Summary ---
Author Organization [facility] Address [address] [place] [address] Phone Care Team Providers Care Electricity Trading Analyst Name Role Phone Unavailable Primary Care Provider Unavailabl e Encounters Date Type Department Care Team Description 02/28/2024 9:48 AM CLIPPER OPERATOR - 02/28/2024 11:59 PM CLIPPER OPERATOR Hospital Encounter [facility]lee Heck [address] [place] [phone] Liam Marin MD Discharge Disposition: Home or Self Care 02/28/2024 External Device Data STL ABSTRACTION Provider, Abstract 02/27/2024 External Device Data STL ABSTRACTION Provider, Abstract 02/26/2024 External Device Data STL ABSTRACTION Provider, Abstract 02/19/2024 External Device Data STL ABSTRACTION Provider, Abstract 01/31/2024 12:58 PM CLIPPER OPERATOR - 01/31/2024 11:59 PM CLIPPER OPERATOR Hospital Encounter [facility] Haylee Heck [address] [place] [phone] Diana Gonzalez MD Discharge Disposition: Home or Self Care 01/31/2024 12:57 PM CLIPPER OPERATOR - 01/31/2024 11:59 PM CLIPPER OPERATOR Hospital Encounter [facility] Haylee Heck [address] [place] [phone] Liam Marin MD Discharge Disposition: Home or Self Care 01/01/2024 External Device Data STL ABSTRACTION Provider, Abstract 12/27/2023 2:15 PM CLIPPER OPERATOR - 12/27/2023 11:59 PM CLIPPER OPERATOR Hospital Encounter [facility] [address] [place] [address] Diana Gonzalez MD Discharge Disposition: Home or Self Care from Last 3 Months Social History Tobacco Use Types Packs/Day Years Used Date Smoking Tobacco: Never Assessed Comments Unknown Sex and Gender Information Value Date Recorded Sex Assigned at Female 12/27/2023 4:17 PM CLIPPER OPERATOR Legal Sex Female 2:40 PM CLIPPER OPERATOR Gender Identity Female 12/27/2023 4:17 PM CLIPPER OPERATOR Sexual Orientation Straight 12/27/2023 4: 17 PM CLIPPER OPERATOR Plan of Treatment Upcoming Encounters Date Type Department Care Team (Late st Contact Info) Description 03/27/2024 10:00 AM CLIPPER OPERATOR Appointment [facility] Haylee Heck [address] [place] [phone] Liam Marin MD [address] [phone] Health Maintenance Due Date Last Done Comments DTAP/TDAP/TD VACCINES (7 - Td or Tdap) 04/29/2017 04/30/2007, 09/11/1994, 12/17/1990, Additional history exists CERVICAL CANCER SCREENING 06/29/2019 INFLUENZA VACCINE (#1) 2023 HEPATITIS B VACCINES Completed 08/10/1999, 01/04/1999, 12/07/1998 HPV VACCINES Aged Out No longer eligi ble based on patient's age to complete this topic Procedures Procedure Name Priority Date/Time Associated Diagnosis Comments US OB FOLLOW UP PER FETUS Routine 02/28/2024 10:15 AM CLIPPER OPERATOR Insulin controlled gestational diabetes mellitus (GDM) during , antepartum ECHO 2D + COLOR FLOW VELOCITY Routine 01/31/2024 2:16 PM CLIPPER OPERATOR Encounter for screening for malformation Gestational diabetes mellitus (GDM) affecting US OB FOLLOW UP PER FETUS Routine 01/31/2024 2:14 PM CLIPPER OPERATOR Insulin controlled gestational diabetes mellitus (GDM) during , antepartum US OB DETAIL SINGLE GEST Routine 12/27/2023 3:21 PM CLIPPER OPERATOR Encounter for screening for malformation Gestational diabetes mellitus (GDM) affecting from Last 3 Months Results * US OB FOLLOW UP PER FETUS (02/28/2024 10:15 AM CLIPPER OPERATOR) Only the most recent of2 resultswithin the time period is included. Anatomical Region Laterality Modality Pelvis Ultrasound 02/28/2024 9:51 AM CLIPPER OPERATOR Narrative 02/28/2024 10:21 AM CLIPPER OPERATOR STL FOLLOW UP ----- Pat. Name: NICKI POTTS Study Date: 02/28/2024 9:51am Pat. NO: [id number] Referring ??MD: DIANA GONZALEZ MD Site: [facility] Operator: Stephanie Gordon RDMS : 1990 Age: 33 ----- INDICATION ----- Screening Follow-Up Gestational Diabetes, Insulin Controlled Anxiety, Maternal CODING ----- Diagnoses ? Z3A.29: Weeks of gestation ?O99.343: Other mental disorders complicating ?O24.414: Gestational diabetes mellitus in , insulin controlled ?Z36.3: Encounter for screening for malformations ?Z3A.29: Weeks of gestation ?O99.343: Other mental disorders complicating ?Z36.2: Encounter for other screening follow-up Procedures ?25809: Ultrasound, uterus, real time with image documentation, follow up, transabdominal ?approach per fetus HISTORY ----- OB History ? 2. Para 1 ?T1L1 MATERNAL ASSESSMENT ----- Physical Exam ? Weight 91 kg. BMI 28.70 kg/m?? METHOD ----- Transabdominal ultrasound examination ----- Santa . Number of fetuses: 1 DATING ----- GA by prior assessment 29 w + 0 d IRINEO by prior assessment: 05/15/2024 Ultrasound examination on: 02/28/2024 GA by U/S based upon: AC, BPD, EFW, Femur, HC GA by U/S 30 w + 1 d IRINEO by U/S: 05/07/2024 Method of dating: Restore dating from previous exam Assigned: based on stated IRINEO, selected on 12/27/2023 Assigned GA 29 w + 0 d Assigned IRINEO: 05/15/2024 BIOMETRY ----- BPD ?74.9 ? mm ?30w 0d ?71% ?Hadlock OFD ?104.1 ?mm ?34w 0d ?>99% ?Naeem HC ? 287.7 ?mm ?31w 4d ?89% ?Hadlock AC ? 274.0 ?mm ?31w 3d ?96% ?Hadlock Femur ?52.6 ? mm ?28w 0d ?12% ?Hadlock HC / AC ?1.05 ? 27% ?Nicolaides Weight Calculation: EFW ? 1,547 ? g ? 30w 0d ?82% ?Hadlock EFW (lb,oz) ? 3 lb 7 ?oz EFW by ?Hadlock ([id number]) Head / Face / Neck Biometry: Exterminator Helper Termite ? 5.8 ? mm Extremities / Bony Struc Biometry: FL / BPD ?0.70 FL / HC ? 0.18 FL / AC ? 0.19 GENERAL EVALUATION ----- Cardiac activity present. FHR 134 bpm. movements: present. Presentation: breech Placenta: Placental site: right lateral Umbilical cord: Cord vessels: 3 vessel cord. Insertion site: placental insertion: normal Amniotic fluid: Amount of AF: normal amount. MVP 6.0 cm. FAB 17.8 cm. Q1 2.8 cm, Q2 6.0 cm, Q3 4.1 cm, Q4 4.9 cm ANATOMY ----- The following structures appear normal: Head / Neck ? Cranium. Lateral ventricles. Choroid plexus. Midline falx. Cavum septi pellucidi. Cerebellum. Cisterna ?magna. Heart / Thorax ?4-chamber view. RVOT view. ?Diaphragm. Abdomen ? Stomach. Kidneys. Bladder. GROWTH OVERVIEW ----- Exam date ? GA ?BPD (mm) ? HC (mm) ?AC (mm) ? FL (mm) ?HL (mm) ?EFW (g) 12/27/2023 ?20w 0d ?46.5 ?52% ?169.1 ? 22% ?156.8 ?72% ?29.2 ?12% ?28.7 ?30% ?322 ? 42% 01/31/2024 ?25w 0d ?61.8 ?45% ?235.1 ? 49% ?222.1 ?87% ?43.1 ?14% ? 824 ? 65% 02/28/2024 ?29w 0d ?74.9 ?71% ?287.7 ? 89% ?274.0 ?96% ?52.6 ?12% ? 1,547 ? 82% COMMENT ----- Patient's name and date of were verified by the manager audio prior to the exam IMPRESSION ----- Viable at 29 weeks gestation complicated by gestational diabetes Upper normal growth Estimated weight is at the 82nd percentile with abdominal circumference at the 96th percentile Amniotic fluid volume is normal Right lateral placenta with normal placental cord insertion; placenta is not low-lying Recommendations: -Recommend twice-weekly modified biophysical profile starting at 32 weeks gestation -A follow-up growth ultrasound scheduled in 4 weeks Procedure Note Liam Marin MD - 02/28/2024 STL FOLLOW UP ----- Pat. Name:Jeff POTTS Date:02/28/2024 9:51am Pat. NO: [id number] MD:DIANA GONZALEZ MD [facility] RDMS :1990Age:33 ----- INDICATION ----- Screening Follow-Up Gestational Diabetes, Insulin Controlled Anxiety, Maternal CODING ----- Diagnoses Z3A.29: Weeks of gestation O99.343: Other mental disorders complicatingpregnancy O24.414: Gestational diabetes mellitus inpregnancy, insulin controlled Z36.3: Encounter for screening formalformations Z3A.29: Weeks of gestation O99.343: Other mental disorders complicatingpregnancy Z36.2: Encounter for other screeningfollow-up Procedures [id number]: Ultrasound, uterus, real time withimage documentation, follow up, transabdominal approach per fetus HISTORY ----- OB History 2. Para 1 T1L1 MATERNAL ASSESSMENT ----- Physical Exam Weight 91 kg. BMI 28.70 kg/m?? METHOD ----- Transabdominal ultrasound examination ----- Santa . Number of fetuses: 1 DATING ----- GA by prior [id number] w + 0 d IRINEO by prior assessment:05/15/2024 Ultrasound examination on:02/28/2024 GA by U/S based upon:AC, BPD, EFW, Femur, HC GA by U/S30 w + 1 d IRINEO by U/S:05/07/2024 Method of dating:Restore dating from previous exam Assigned:based on stated IRINEO, selected on 12/27/2023 Assigned GA29 w + 0 d Assigned IRINEO:05/15/2024 BIOMETRY ----- BPD 74.9 mm 30w 0d 71%Hadlock OFD 104.1 mm 34w 0d >99%Naeem HC 287.7 mm 31w 4d 89%Hadlock AC 274.0 mm 31w 3d 96%Hadlock Femur 52.6 mm 28w 0d 12%Hadlock HC / AC 1.05 27%Nicolaides Weight Calculation: EFW 1,547 g 30w 0d82% Hadlock EFW (lb,oz) 3 lb 7 oz EFW by Hadlock ([id number]) Head / Face / Neck Biometry: Exterminator Helper Termite 5.8mm Extremities / Bony Struc Biometry: FL / BPD 0.70 FL / HC 0.18 FL / AC 0.19 GENERAL EVALUATION ----- Cardiac activity present. FHR 134 bpm. movements: present.Presentation: breech Placenta: Placental site: right lateral Umbilical cord: Cord vessels: 3 vessel cord. Insertion site: placentalinsertion: normal Amniotic fluid: Amount of AF: normal amount. MVP 6.0 cm. FAB 17.8 cm. Q12.8 cm, Q2 6.0 cm, Q3 4.1 cm, Q4 4.9 cm ANATOMY ----- The following structures appear normal: Head / Neck Cranium. Lateral ventricles. Choroid plexus.Midline falx. Cavum septi pellucidi. Cerebellum. Cisterna magna. Heart / Thorax 4-chamber view. RVOT view. Diaphragm. Abdomen Stomach. Kidneys. Bladder. GROWTH OVERVIEW ----- Exam date GA BPD (mm) HC (mm) AC (mm) FL(mm) HL (mm) EFW (g) 12/27/2023 20w 0d 46.5 52% 169.1 22% 156.8 72%29.2 12% 28.7 30% 322 42% 01/31/2024 25w 0d 61.8 45% 235.1 49% 222.1 87%43.1 14% 824 65% 02/28/2024 29w 0d 74.9 71% 287.7 89% 274.0 96%52.6 12% 1,547 82% COMMENT ----- Patient's name and date of were verified by the manager audio prior tothe exam IMPRESSION ----- Viable at 29 weeks gestation complicated by gestationaldiabetes Upper normal growth Estimated weight is at the 82nd percentile with abdominalcircumference at the 96th percentile Amniotic fluid volume is normal Right lateral placenta with normal placental cord insertion; placenta isnot low- lying Recommendations: -Recommend twice-weekly modified biophysical profile starting at 32 weeksgestation -A follow-up growth ultrasound scheduled in 4 weeks us Liam Marin MD US ORDERABLES Final Re sult * ECHO 2D + COLOR FLOW VELOCITY (01/31/2024 2:16 PM CLIPPER OPERATOR) Narrative 01/31/2024 2:16 PM CLIPPER OPERATOR Order information only. ??Exam was auto-finalized. ?? us Diana Gonzalez MD US ORDERABLES Final Res ult * US OB DETAIL SINGLE GEST (12/27/2023 3:21 PM CLIPPER OPERATOR) Anatomical Region Laterality Modality Pelvis Ultrasound 12/27/2023 2:40 PM CLIPPER OPERATOR Narrative 12/27/2023 3:25 PM CLIPPER OPERATOR STL COMP ----- Pat. Name: NICKI POTTS Study Date: 12/27/2023 2:40pm Pat. NO: [id number] Referring ??MD: DIANA GONZALEZ MD Site: [facility] Operator: Radha Calloway RDMS : 1990 Age: 33 ----- INDICATION ----- Anatomy Survey ? patient reports low risk NIPT Gestational Diabetes, Insulin Controlled ? dx @ 14 weeks Anxiety, Maternal CODING ----- Diagnoses ? Z3A.20: Weeks of gestation ?O99.342: Other mental disorders complicating ?O24.414: Gestational diabetes mellitus in , insulin controlled ?Z36.3: Encounter for screening for malformations Procedures ?88613: Ultrasound, uterus, real time with image documentation, and maternal evaluation ?plus detailed anatomic examination, transabdominal approach HISTORY ----- OB History ? 2. Para 1 ?T1L1 MATERNAL ASSESSMENT ----- Physical Exam ? Weight 91 kg. BMI 28.70 kg/m?? METHOD ----- Transabdominal ultrasound examination ----- Santa . Number of fetuses: 1 DATING ----- Method of dating: based on stated IRINEO GA by prior assessment 20 w + 0 d IRINEO by prior assessment: 05/15/2024 Ultrasound examination on: 12/27/2023 GA by U/S based upon: AC, BPD, EFW, Femur, HC GA by U/S 19 w + 6 d IRINEO by U/S: 05/16/2024 Assigned: based on stated IRINEO, selected on 12/27/2023 Assigned GA 20 w + 0 d Assigned IRINEO: 05/15/2024 BIOMETRY ----- BPD ?46.5 ? mm ? 20w 0d ? 52% ?Hadlock OFD ?59.6 ? mm ? 20w 5d ? 73% ?Naeem HC ? 169.1 ?mm ? 19w 4d ? 22% ?Hadlock Cerebellum tr ?20.1 ? mm ? 20w 0d ? 53% ?[place] Nuchal fold ?4.3 ?mm AC ? 156.8 ?mm ? 20w 6d ? 72% ?Hadlock Femur ?29.2 ? mm ? 19w 0d ? 12% ?Hadlock Humerus ?28.7 ? mm ? 19w 2d ? 30% ?Naeem HC / AC ?1.08 ?7% ? Nicolaides Weight Calculation: EFW ?322 ? g ?19w 6d ?42% ?Hadlock EFW (lb,oz) ?0 lb 11 ? oz EFW by ?Hadlock ([id number]) Head / Face / Neck Biometry: Exterminator Helper Termite ? 4.8 ?mm CM ? 3.1 ?mm ? 4% ?Nicolaides Outer IOD ? 31.1 ?mm ? 20w 0d ?27% ?Naeem Extremities / Bony Struc Biometry: FL / BPD ? 0.63 ?4% ?Hadlock FL / HC ?0.17 ?5% ?Hadlock FL / AC ?0.19 ?<1% ?Hadlock GENERAL EVALUATION ----- Cardiac activity present. FHR 142 bpm. movements: present. Presentation: cephalic Placenta: Placental site: right lateral Umbilical cord: Cord vessels: 3 vessel cord. Insertion site: placental insertion: normal Amniotic fluid: Amount of AF: normal amount. MVP 5.9 cm ANATOMY ----- The following structures appear normal: Head / Neck ? Cranium. Lateral ventricles. Choroid plexus. Midline falx. Cavum septi pellucidi. Cerebellum. Cisterna ?magna. Thalami. ?Nuchal fold. Face ?Lips. Profile. Nose. Palate. Orbits. Heart / Thorax ?4-chamber view. RVOT view. LVOT view. 3-vessel view. 8-tjdxpo-pmqygzj view. Situs. Aortic arch view. ?Ductal arch view. Superior vena cava. Inferior vena cava. High short axis view. Cardiac rhythm. ?Diaphragm. Abdomen ? Abdominal wall. Stomach. Kidneys. Bladder. Spine ? Cervical spine. Thoracic spine. Lumbar spine. Sacral spine. Extremities / ? Arms. Right hand. Left hand. Legs. Right foot. Left foot. Skeleton MATERNAL STRUCTURES ----- Cervix ?Visualized ?Approach - Transabdominal: Cervical length 43.6 mm Right Ovary ? Normal ?Size 15 mm x 27 mm x 18 mm. Vol 3.7 cm?? Left Ovary ?Suboptimal GROWTH OVERVIEW ----- Exam date ? GA ?BPD (mm) ? HC (mm) ?AC (mm) ? FL (mm) ?HL (mm) ?EFW (g) 12/27/2023 ?20w 0d ?46.5 ?52% ?169.1 ? 22% ?156.8 ?72% ?29.2 ?12% ?28.7 ?30% ?322 ? 42% COMMENT ----- Patient's name and date of were verified by the manager audio before the exam IMPRESSION ----- IUP at 20w 0d AGA growth with EFW 322 g (42%) No major structural malformations are identified within the limits of ultrasound. No soft markers of aneuploidy are visualized. Normal amniotic fluid volume, MVP 5.9 cm Normal cervical length, 43.6 mm Placenta is right lateral with no previa Recommendations: - Recommend growth and echo in 4 weeks due to early diagnosis of GDM Procedure Note Jamilah Bal MD - 12/27/2023 STL COMP ----- Pat. Name:Jeff POTTS Date:12/27/2023 2:40pm Pat. NO: [id number] MD:DIANA GONZALEZ [facility]allow[facility] RDMS :1990Age:33 ----- INDICATION ----- Anatomy Survey patient reports yuan HYDE Gestational Diabetes, Insulin Controlled dx @ 14 weeks Anxiety, Maternal CODING ----- Diagnoses Z3A.20: Weeks of gestation O99.342: Other mental disorders complicatingpregnancy O24.414: Gestational diabetes mellitus inpregnancy, insulin controlled Z36.3: Encounter for screening formalformations Procedures 33112: Ultrasound, uterus, real time withimage documentation, and maternal evaluation plus detailed anatomic examination,transabdominal approach HISTORY ----- OB History 2. Para 1 T1L1 MATERNAL ASSESSMENT ----- Physical Exam Weight 91 kg. BMI 28.70 kg/m?? METHOD ----- Transabdominal ultrasound examination ----- Santa . Number of fetuses: 1 DATING ----- Method of dating:based on stated IRINEO GA by prior [id number] w + 0 d IRINEO by prior assessment:05/15/2024 Ultrasound examination on:12/27/2023 GA by U/S based upon:AC, BPD, EFW, Femur, HC GA by U/S19 w + 6 d IRINEO by U/S:05/16/2024 Assigned:based on stated IRINEO, selected on 12/27/2023 Assigned GA20 w + 0 d Assigned IRINEO:05/15/2024 BIOMETRY ----- BPD 46.5 mm 20w 0d52% Hadlock OFD 59.6 mm 20w 5d73% Naeem HC 169.1 mm 19w 4d22% Hadlock Cerebellum tr 20.1 mm 20w 0d53% Greenfield Nuchal fold 4.3 mm AC 156.8 mm 20w 6d72% Hadlock Femur 29.2 mm 19w 0d12% Hadlock Humerus 28.7 mm 19w 2d30% Naeem HC / AC 1.08 7%Nicolaides Weight Calculation: EFW 322 g 19w 6d 42%Hadlock EFW (lb,oz) 0 lb 11 oz EFW by Hadlock ([id number]) Head / Face / Neck Biometry: Exterminator Helper Termite 4.8 mm CM 3.1 mm 4%Nicolaides Outer IOD 31.1 mm 20w 0d 27%Naeem Extremities / Bony Struc Biometry: FL / BPD 0.63 4%Hadlock FL / HC 0.17 5%Hadlock FL / AC 0.19 <1%Hadlock GENERAL EVALUATION ----- Cardiac activity present. FHR 142 bpm. movements: present.Presentation: cephalic Placenta: Placental site: right lateral Umbilical cord: Cord vessels: 3 vessel cord. Insertion site: placentalinsertion: normal Amniotic fluid: Amount of AF: normal amount. MVP 5.9 cm ANATOMY ----- The following structures appear normal: Head / Neck Cranium. Lateral ventricles. Choroid plexus.Midline falx. Cavum septi pellucidi. Cerebellum. Cisterna magna. Thalami. Nuchal fold. Face Lips. Profile. Nose. Palate. Orbits. Heart / Thorax 4-chamber view. RVOT view. LVOT view. 3-vesselview. 8-lmddhu-tgbeqhb view. Situs. Aortic arch view. Ductal arch view. Superior vena cava. Inferiorvena cava. High short axis view. Cardiac rhythm. Diaphragm. Abdomen Abdominal wall. Stomach. Kidneys. Bladder. Spine Cervical spine. Thoracic spine. Lumbar spine.Sacral spine. Extremities / Arms. Right hand. Left hand. Legs. Right foot.Left foot. Skeleton MATERNAL STRUCTURES ----- Cervix Visualized Approach - Transabdominal: Cervical length 43.6mm Right Ovary Normal Size 15 mm x 27 mm x 18 mm. Vol 3.7 cm?? Left Ovary Suboptimal GROWTH OVERVIEW ----- Exam date GA BPD (mm) HC (mm) AC (mm) FL(mm) HL (mm) EFW (g) 12/27/2023 20w 0d 46.5 52% 169.1 22% 156.8 72%29.2 12% 28.7 30% 322 42% COMMENT ----- Patient's name and date of were verified by the manager audio beforethe exam IMPRESSION ----- IUP at 20w 0d AGA growth with EFW 322 g (42%) No major structural malformations are identified within the limitsof ultrasound. No soft markers of aneuploidy are visualized. Normal amniotic fluid volume, MVP 5.9 cm Normal cervical length, 43.6 mm Placenta is right lateral with no previa Recommendations: - Recommend growth and echo in 4 weeks due to early diagnosis ofGDM us Diana Gonzalez MD ORDERABLES Final Res ult from Last 3 Months Insurance [employer] [facility] BLUE ACCESS/TRUE BLUE PPO
[2024-03-03 11:09] LABS: Hemoglobin A1C 5.5 % (<5.7)
[2024-03-03 11:42] LABS: HIV 1/2 Ab P24 Ag Result Negative (Negative)
[2024-03-03 12:07] LABS: Rapid Plasma Reagin Non-Reactive (NonReactive)
[2024-03-03 12:09] LABS: Vitamin D 25 Hydroxy 32.8 ng/mL
[2024-03-03] MEDS: RHO(D) IMMUNE GLOBULIN 300 MCG/2 ML SYRINGE IM (16:07)
== END 2024-06-01 23:59 | disposition home or self-care (01) ==
LOC: ANHLAB 10:09
PROVIDERS: PCP Internal Medicine; Visit Provider Obstetrics & Gynecology Gynecology
DX: Z29.13 Encounter for prophylactic Rho(D) immune globulin (principal); Z36.9 Encounter for antenatal screening, unspecified; Z67.91 Unspecified blood type, Rh negative; O24.414 Gestational diabetes mellitus in pregnancy, insulin controlled
CPT/HCPCS: 36415; 82306; 83036; 85014; 85018; 85461; 86592; 86703; 86850; 86900; 86901; 90384; 96372; G0432; J2790

== ENCOUNTER 2024-05-09 10:01 | Outpatient (RCR) | payer OTHER, BC, SELFPAY ==
[2024-03-31 17:29] VITALS: BP 122/73; PULSE 90
[2024-04-04 15:47] VITALS: BP 108/63; PULSE 93
[2024-04-08 09:26] VITALS: BP 127/68; PULSE 87
[2024-04-12 09:26] VITALS: BP 112/66; PULSE 86
[2024-04-15 11:08] VITALS: BP 128/78; PULSE 88
[2024-04-19 10:21] VITALS: BP 116/65; PULSE 68
[2024-04-21 11:06] VITALS: BP 123/72; PULSE 85
[2024-04-28 15:45] VITALS: BP 136/68; PULSE 82
[2024-05-02 10:38] VITALS: BP 130/77; PULSE 73
[2024-05-03 11:19] VITALS: BP 122/67; PULSE 90
[2024-05-05 14:26] VITALS: BP 126/79; PULSE 91
[2024-05-09 10:38] VITALS: BP 123/71; PULSE 69
== END 2024-05-28 17:12 | disposition home or self-care (01) ==
LOC: ANHOBOP 10:01
PROVIDERS: Visit Provider Obstetrics & Gynecology Gynecology
DX: O24.419 Gestational diabetes mellitus in pregnancy, unspecified control (principal)
CPT/HCPCS: 59025

== ENCOUNTER 2024-05-12 12:42 | Outpatient (CLI) | payer OTHER, BC, SELFPAY ==
[2024-05-12 13:36] LABS: Hematocrit 34.4 % (37.0-47.0); Hemoglobin 10.2 g/dL (12.0-15.0); Mean Corpuscular HGB Conc 29.7 g/dl (32-36); Mean Corpuscular Hemoglobin 21.1 pg (26-34); Mean Corpuscular Volume 71.2 fl (80-100); Mean Platelet Volume 10.2 fl (7.4-10.4); Platelet Count Result 228 k/mm3 (150-375); Red Blood Count 4.83 M/mm3 (4.2-5.4); Red Cell Distribution Width 18.2 % (11.5-14.5); White Blood Count 8.8 K/mm3 (4.5-10.0)
--- OUTSIDE RECORDS SUMMARY | 2024-05-12 14:20 | XMS_ITS | Clinical Summary ---
Author Organization [facility] A Address [address] [place] [address] Care Team Providers Care Photo Booth Operator Name Role Phone Jose Raymundo MD Primary Care Provider Allergies No known active allergies Medications butalbital-acet aminophen-caffe ine (FIORICET) 50-300-40 mg per capsule TAKE ONE CAPSULE BY MOUTH EVERY 6 HOURS NEEDED FOR HEADACHE 4 Active HumuLIN N 100 unit/mL (3 mL) pen for injection ADMINISTER 18 UNITS UNDER THE SKIN EVERY NIGHT AT BEDTIME. INCREASE BY 3 UNITS EVERY NIGHT UNTIL FASTING BLOOD SUGAR BELOW 90- 4 Active escitalopram (LEXAPRO) 10 mg tablet Take 1 tablet (10 mg total) by mouth daily 5 Active Active Problems Problem Noted Date Diagnosed Date [...] Encounters Date Type Department Care Team Description 03/04/2024 Telephone [facility] Primary Care at [address] [phone] Jose Raymundo MD 03/03/2024 Orders Only [facility] Health Information Management [address] [place] [phone] Jose Raymundo MD 02/20/2024 Telephone [facility] Primary Care at [address] [phone] Jose Raymundo MD 02/19/2024 10:35 AM [employer] [employer] Lab [address] [phone] Goiter 02/19/2024 9:30 AM JOB DEVELOPER [employer] Office Visit [facility] Primary Care at [address] [phone] Jose Raymundo MD Annual physical exam (Primary Dx); BMI 28.0-28.9,adult; Migraine without aura and without status migrainosus, not intractable; Insulin controlled gestational diabetes mellitus (GDM) in second trimester; Goiter from Last 3 Months Immunizations Immunization Administration Dates Next Due DTP 09/11/1994, 1,02/08/1990,1989,0 1989 Hep B, Adolescent or Pediatric 08/10/1999,1998,12/07/1998 HiB 10/01/1990,04/02/1990 Influenza, Unspecified 02/19/2024(Deferr ed: Patient Refused),02/10/2022(Deferred: Patient Refused),02/08/2021(Deferred: Patient Refused),02/08/2021(Deferred: Patient Refused),11/05/2020(Deferred: Patient Refused),10/05/2020(Deferred: Patient Refused),09/08/2020(Deferred: Patient Refused),02/04/2020(Deferred: Patient Refused),11/06/2019(Deferred: Patient Refused),01/30/2019(Deferred: Patient Refused),11/05/2018(Deferred: Patient Refused),01/25/2018(Deferred: Patient Refused),11/05/2017(Deferred: Patient Refused) MMR 09/11/1994,10/01/1990 OPV 09/11/1994,12/17/1990 Tdap 04/30/2007 Medical History Medical History Date Comments 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 Family History Medical History Relation Name Comments [...] on file Legal Sex Female 9:01 AM J[employer]ELOPER [employer] Gender Identity Female 02/03/2020 7:22 PM J[employer]EL[employer] Sexual Orientation Straight 02/03/2020 7: 22 PM JOB [employer]ELOPER [employer] Obstetrics History Last Filed Vital Signs Vital Sign Reading Time Taken Comments Blood Pressure 132/70 02/19/2024 9:38 AM JOB [employer]EL[employer] Pulse 84 02/19/2024 9:38 AM JOB [employer]EL[employer] Temperature 36.6 C (97.8 F) 02/19/2024 9:38 AM JOB DEVELOPER [employer] Respiratory Rate 16 02/19/2024 9:38 AM JOB DEVELOPER [employer] Oxygen Saturation 99% 02/19/2024 9:38 AM JOB DEVELOPER [employer] Inhaled Oxygen Concentration - - Weight 92.5 kg (204 lb) 02/19/2024 9:38 AM JOB DEVELOPER [employer] Height 180.3 cm (5' 11 ) 02/19/2024 9:38 AM JOB DEVELOPER [employer] Body Mass Index 28.45 02/19/2024 9:38 AM JOB DEVELOPER [employer] Plan of Treatment Health Maintenance Due Date Last Done Comments Hepatitis C Screening 1989 Varicella Vaccines (1 of 2 - 13+ 2-dose series) 2002 DTaP/Tdap/Td Vaccine (7 - Td or Tdap) 04/29/2017 04/30/2007, 09/11/1994, 12/17/1990, Additional history exists Cervical Cancer Screening 07/23/2020 07/24/2019, Influenza Vaccine (Season Ended) 2024 Depression Screening 02/18/2025 02/19/2024, 02/14/2023, 02/10/2022, Additional history exists Regular Well Visit/Exam 18-64 02/18/2025 02/19/2024, 02/14/2023, 02/10/2022, Additional history exists Hepatitis B Screening Completed 08/10/1999 , 01/04/1999, 12/07/1998 HPV Vaccines Aged Out No longer eligi ble based on patient's age to complete this topic Pneumococcal vaccine <65 Aged Out No longer eligible based on patient's age to complete this topic Procedures Procedure Name Priority Date/Time Associated Diagnosis Comments SCAN - LABS 03/03/2024 TSH Routine 02/19/2024 10:38 AM JOB DEVELOPER [employer] Goiter HM PAP SMEAR WITH HPV Routine 07/24/2019 from Last 3 Months or Most Recently Relevant to Health Maintenance Results * SCAN - LABS (03/03/2024) us Jose Raymundo MD Edited Result - Final * TSH (02/19/2024 10:38 AM JOB DEVELOPER [employer]) Thyroid Stimulating Hormone 1.20 0.30 - 4.20 mcIUnit/mL Blood 02/19/2024 10:3 8 AM J[employer]EL[employer] 02/19/2024 11:06 AM [employer] Jose Raymundo MD LAB BLOOD ORDERABLES Fi nal Result [facility] ([place]) [facility] Department [place] [address] * PAP SMEAR WITH HPV (07/24/2019) Historical Provider HEALTH MAINTENANCE Final Result from Last 3 Months or Most Recently Relevant to Health Maintenance Insurance [facility] CHOICE PLUS [facility] CHOICE PLUS [employer] [place] [employer] [place] [facility] HEALTHSOLUTIONS Care Teams Photo Booth Operator Relationship Specialty Start Date End Date Jose Raymundo MD PCP - General 10/23/09
--- OUTSIDE RECORDS SUMMARY | 2024-05-12 14:20 | XMS_ITS | Referral Summary ---
Author Organization [facility] Medical Office Building A Address [address] [place] [address] Care Team Providers Care Physical Education Instructor Name Role Phone Jose Raymundo MD Primary Care Provider Encounters Date Type Department Care Team Description 03/04/2024 Telephone [facility] Primary Care at [address] [phone] Jose Raymundo MD 03/03/2024 Orders Only [facility] [place] [address] [place] [phone] Jose Raymundo MD 02/20/2024 Telephone [facility] Medical [facility] Primary Care at [address] [phone] Jose Raymundo MD 02/19/2024 10:35 AM [facility] IN [facility] Lab [address] [phone] Goiter 02/19/2024 9:30 AM DRAWER IN [employer] Office Visit [facility] Medical [facility] Primary Care at [address] [phone] Jose Raymundo MD Annual physical exam (Primary Dx); BMI 28.0-28.9,adult; Migraine without aura and without status migrainosus, not intractable; Insulin controlled gestational diabetes mellitus (GDM) in second trimester; Goiter from Last 3 Months Allergies No known active allergies Medications butalbital-acet [...] 08/19/2013 01/30/2019 Overview (05/12/2016): [facility] Atypical migraine 03/16/2010 01/30/2019 Immunizations Immunization Administration Dates Next Due DTP [...] on file Legal Sex Female 9:01 AM DRAWER IN [facility] [employer] Gender Identity Female 02/03/2020 7:22 PM DRAWER [facility] Sexual Orientation Straight 02/03/2020 7: 22 PM DRAWER IN [facility] [employer] Last Filed Vital Signs Vital Sign Reading Time Taken Comments Blood Pressure 132/70 02/19/2024 9:38 AM DRAWER IN [facility] [employer] Pulse 84 02/19/2024 9:38 AM DRAWER [facility] [employer] Temperature 36.6 C (97.8 F) 02/19/2024 9:38 AM DRAWER IN [facility] [employer] Respiratory Rate 16 02/19/2024 9:38 AM DRAWER IN [facility] [employer] Oxygen Saturation 99% 02/19/2024 9:38 AM DRAWER IN [facility] [employer] Inhaled Oxygen Concentration - - Weight 92.5 kg (204 lb) 02/19/2024 9:38 AM DRAWER [facility] [employer] Height 180.3 cm (5' 11 ) 02/19/2024 9:38 AM DRAWER [employer] [facility] [employer] Body Mass Index 28.45 02/19/2024 9:38 AM DRAWER IN [facility] [employer] Plan of Treatment Not on file Procedures Procedure Name Priority Date/Time Associated Diagnosis Comments SCAN - LABS 03/03/2024 TSH Routine 02/19/2024 10:38 AM DRAWER IN [facility] [employer] Goiter HM PAP SMEAR WITH HPV Routine 07/24/2019 from Last 3 Months or Most Recently Relevant to Health Maintenance Results * SCAN - LABS (03/03/2024) Jose Raymundo MD Edited Result - Final * TSH (02/19/2024 10:38 AM DRAWER IN [facility] [employer]) Thyroid Stimulating Hormone 1.20 0.30 - 4.20 mcIUnit/mL Blood 02/19/2024 10:3 8 AM DRAWER [facility] [employer] 02/19/2024 11:06 AM DRAWER IN [facility] [employer] Jose Raymundo MD LAB BLOOD ORDERABLES Fi nal Result [facility] [place] [facility] Department [place] [address] * HM PAP SMEAR WITH HPV (07/24/2019) Gato Hodge MD HEALTH MAINTENANCE Final Result from Last 3 Months or Most Recently Relevant to Health Maintenance Insurance [facility] CHOICE PLUS BLUE ACCESS MS [facility] CHOICE PLUS BLUE ACCESS MS [facility] [employer] Care Teams Physical Education Instructor Relationship Specialty Start Date End Date Jose Raymundo MD PCP - General 10/23/09
--- OUTSIDE RECORDS SUMMARY | 2024-05-12 14:20 | XMS_ITS | Clinical Summary ---
Author Organization [facility] Address [address] [place] [address] Phone Care Team Providers Care Cinder Pit Crane Operator Name Role Phone Unavailable Primary Care Provider Unavailabl e Encounters Date Type Department Care Team Description 04/24/2024 10:30 AM CDT - 04/24/2024 11:59 PM CDT Hospital Encounter [facility] Haylee Heck [address] [place] [phone] Stephanie Fleming MD Discharge Disposition: Home or Self Care 04/24/2024 9:56 AM CDT - 04/24/2024 11:59 PM CDT Hospital Encounter [facility] Haylee Heck [address] [place] [phone] Stephanie Fleming MD Discharge Disposition: Home or Self Care 04/23/2024 External Device Data STL ABSTRACTION Provider, Abstract 04/23/2024 External Device Data STL ABSTRACTION Provider, Abstract 04/12/2024 External Device Data STL ABSTRACTION Provider, Abstract 04/11/2024 External Device Data STL ABSTRACTION Provider, Abstract 04/08/2024 External Device Data STL ABSTRACTION Provider, Abstract 03/27/2024 10:34 AM ACCOUNTS RECEIVABLE REPRESENTATIVE - 03/27/2024 11:59 PM ACCOUNTS RECEIVABLE REPRESENTATIVE Hospital Encounter [facility] Haylee Heck [address] [place] [phone] Stephanie Fleming MD Discharge Disposition: Home or Self Care 03/27/2024 9:53 AM ACCOUNTS RECEIVABLE REPRESENTATIVE - 03/27/2024 11:59 PM ACCOUNTS RECEIVABLE REPRESENTATIVE Hospital Encounter [facility] [place]lee [address] [place] [phone] Liam Marin MD Discharge Disposition: Home or Self Care 03/25/2024 External Device Data STL ABSTRACTION Provider, Abstract 02/28/2024 9:48 AM ACCOUNTS RECEIVABLE REPRESENTATIVE - 02/28/2024 11:59 PM ACCOUNTS RECEIVABLE REPRESENTATIVE Hospital Encounter [facility] Haylee Heck [address] [place] [phone] Liam Marin MD Discharge Disposition: Home or Self Care 02/28/2024 External Device Data STL ABSTRACTION Provider, Abstract 02/27/2024 External Device Data STL ABSTRACTION Provider, Abstract 02/26/2024 External Device Data STL ABSTRACTION Provider, Abstract 02/19/2024 External Device Data STL ABSTRACTION Provider, Abstract from Last 3 Months Social History Tobacco Use Types Packs/Day Years Used Date Smoking Tobacco: Never Assessed Comments Unknown Sex and Gender Information Value Date Recorded Sex Assigned at Female 12/27/2023 4:17 PM ACCOUNTS RECEIVABLE REPRESENTATIVE Legal Sex Female 2:40 PM ACCOUNTS RECEIVABLE REPRESENTATIVE Gender Identity Female 12/27/2023 4:17 PM ACCOUNTS RECEIVABLE REPRESENTATIVE Sexual Orientation Straight 12/27/2023 4: 17 PM ACCOUNTS RECEIVABLE REPRESENTATIVE Plan of Treatment Health Maintenance Due Date Last Done Comments HPV/Cotest (21-29) 2010 DTAP/TDAP/TD VACCINES (7 - Td or Tdap) 04/29/2017 04/30/2007, 09/11/1994, 12/17/1990, Additional history exists CERVICAL CANCER SCREENING 06/29/2019 HPV/Cotest (30-65) 06/29/2019 PAP SMEAR 06/29/2019 INFLUENZA VACCINE (#1) 2023 HEPATITIS B VACCINES Completed 08/10/1999, 01/04/1999, 12/07/1998 HPV VACCINES Aged Out No longer eligi ble based on patient's age to complete this topic Procedures Procedure Name Priority Date/Time Associated Diagnosis Comments US MONITORING NST Routine 04/24/2024 2:01 PM CDT Insulin controlled gestational diabetes mellitus (GDM) during , antepartum US OB FOLLOW UP PER FETUS Routine 04/24/2024 10:26 AM CDT Insulin controlled gestational diabetes mellitus (GDM) during , antepartum US OB FOLLOW UP PER FETUS Routine 03/27/2024 11:41 AM ACCOUNTS RECEIVABLE REPRESENTATIVE Insulin controlled gestational diabetes mellitus (GDM) during , antepartum US MONITORING NST Routine 03/27/2024 11:29 AM ACCOUNTS RECEIVABLE REPRESENTATIVE Insulin controlled gestational diabetes mellitus (GDM) during , antepartum US OB FOLLOW UP PER FETUS Routine 02/28/2024 10:15 AM ACCOUNTS RECEIVABLE REPRESENTATIVE Insulin controlled gestational diabetes mellitus (GDM) during , antepartum from Last 3 Months Results * US MONITORING NST (04/24/2024 2:01 PM CDT) Only the most recent of2 resultswithin the time period is included. Anatomical Region Laterality Modality Ultrasound 04/24/2024 11:0 8 AM CDT [facility] 04/24/2024 11:18 AM CDT [facility] NST ----- Pat. Name: NICKI POTTS Study Date: 04/24/2024 11:08am Pat. NO: [id number] Referring MD: JUAN MONSON MD Site: [employer] V[employer] Clerk: : 1990 Age: 33 ----- INDICATION ----- Gestational Diabetes, Insulin Controlled Anxiety, Maternal CODING ----- Diagnoses Z3A.37: Weeks of gestation O99.343: Other mental disorders complicating O24.414: Gestational diabetes mellitus in , insulin controlled Z36.3: Encounter for screening for malformations Z3A.37: Weeks of gestation O99.343: Other mental disorders complicating Z36.2: Encounter for other screening follow-up Procedures 36436: NST/ monitoring HISTORY ----- OB History 2. Para 1 T1L1 MATERNAL ASSESSMENT ----- Physical Exam Weight 91 kg. BMI 28.70 kg/m . Blood pressure 116/71 mmHg. Heart rate 79 bpm METHOD ----- EFM ----- Santa . Number of fetuses: 1 DATING ----- GA by prior assessment 37 w + 0 d IRINEO by prior assessment: 05/15/2024 Method of dating: Restore dating from previous exam Assigned: based on stated IRINEO, selected on 12/27/2023 Assigned GA 37 w + 0 d Assigned IRINEO: 05/15/2024 NON STRESS TEST ----- NST interpretation: reactive. Test duration 24 min. Baseline FHR 125 bpm. Baseline variability: moderate. Accelerations: Present. Decelerations: Not present. Uterine activity: absent COMMENT ----- Nursing notes: Patient reports positive movement with no bleeding, leaking or marshall. Patient scheduled twice weekly in OBs office. IMPRESSION ----- Non-Stress Test is Reactive Procedure Note Maribeth Zuniga MD - 04/24/2024 [facility] NST ----- Pat. Name:Jeff POTTS Date:04/24/2024 11:08am Pat. NO: [id number] :JUAN MONSON MD Site:[facility]ographer: :1990Age:33 ----- INDICATION ----- Gestational Diabetes, Insulin Controlled Anxiety, Maternal CODING ----- Diagnoses Z3A.37: Weeks of gestation O99.343: Other mental disorders complicatingpregnancy O24.414: Gestational diabetes mellitus inpregnancy, insulin controlled Z36.3: Encounter for screening formalformations Z3A.37: Weeks of gestation O99.343: Other mental disorders complicatingpregnancy Z36.2: Encounter for other screeningfollow-up Procedures 87113: NST/ monitoring HISTORY ----- OB History 2. Para 1 T1L1 MATERNAL ASSESSMENT ----- Physical Exam Weight 91 kg. BMI 28.70 kg/m . Blood emqufvjw441/71 mmHg. Heart rate 79 bpm METHOD ----- EFM ----- Santa . Number of fetuses: 1 DATING ----- GA by prior [id number] w + 0 d IRINEO by prior assessment:05/15/2024 Method of dating:Restore dating from previous exam Assigned:based on stated IRINEO, selected on 12/27/2023 Assigned GA37 w + 0 d Assigned IRINEO:05/15/2024 NON STRESS TEST ----- NST interpretation: reactive. Test duration 24 min. Baseline FHR 125 bpm.Baseline variability: moderate. Accelerations: Present. Decelerations: Not present. Uterine activity: absent COMMENT ----- Nursing notes: Patient reports positive movement with no bleeding,leaking or marshall. Patient scheduled twice weekly in OBs office. IMPRESSION ----- Non-Stress Test is Reactive us Stephanie Fleming MD US ORDERABLES Final Result * US OB FOLLOW UP PER FETUS (04/24/2024 10:26 AM CDT) Only the most recent of3 resultswithin the time period is included. Anatomical Region Laterality Modality Pelvis Ultrasound 04/24/2024 10:0 0 AM CDT Narrative 04/24/2024 10:33 AM CDT [facility] FOLLOW UP ----- Pat. Name: NICKI POTTS Study Date: 04/24/2024 10:00am Pat. NO: [id number] Referring MD: JUAN MONSON MD Site: [facility] [employer] Clerk: Stephanie Gordon RDMS : 1990 Age: 33 ----- INDICATION ----- Gestational Diabetes, Insulin Controlled Anxiety, Maternal CODING ----- Diagnoses Z3A.37: Weeks of gestation O99.343: Other mental disorders complicating O24.414: Gestational diabetes mellitus in , insulin controlled Z36.3: Encounter for screening for malformations Z3A.37: Weeks of gestation O99.343: Other mental disorders complicating Z36.2: Encounter for other screening follow-up Procedures 02722: Ultrasound, uterus, real time with image documentation, follow up, transabdominal approach per fetus HISTORY ----- OB History 2. Para 1 T1L1 METHOD ----- Transabdominal ultrasound examination ----- Santa . Number of fetuses: 1 DATING ----- GA by prior assessment 37 w + 0 d IRINEO by prior assessment: 05/15/2024 Ultrasound examination on: 04/24/2024 GA by U/S based upon: AC, BPD, Femur GA by U/S 38 w + 2 d IRINEO by U/S: 05/06/2024 Method of dating: Restore dating from previous exam Assigned: based on stated IRINEO, selected on 12/27/2023 Assigned GA 37 w + 0 d Assigned IRINEO: 05/15/2024 BIOMETRY ----- BPD 94.9 mm 38w 5d 95% Hadlock OFD 131.4 mm -/- >99% Naeem HC 362.1 mm -/- >99% Hadlock AC 369.2 mm 40w 6d >99% Hadlock Femur 69.0 mm 35w 3d 13% Hadlock HC / AC 0.98 30% Nicolaides Weight Calculation: EFW 3,870 g -/- 98% Hadlock EFW (lb,oz) 8 lb 9 oz EFW by Hadlock ([id number]) Head / Face / Neck Biometry: Billet Recorder 4.7 mm Extremities / Bony Struc Biometry: FL / BPD 0.73 FL / HC 0.19 FL / AC 0.19 GENERAL EVALUATION ----- Cardiac activity present. FHR 136 bpm. movements: present. Presentation: breech Placenta: Placental site: right lateral Umbilical cord: Cord vessels: 3 vessel cord. Insertion site: placental insertion: normal Amniotic fluid: Amount of AF: normal amount. MVP 6.5 cm. FAB 11.4 cm. Q1 0.0 cm, Q2 3.9 cm, Q3 6.5 cm, Q4 1.1 cm ANATOMY ----- The following structures appear normal: Head / Neck Cranium. Lateral ventricles. Choroid plexus. Midline falx. Cavum septi pellucidi. Cerebellum. Cisterna magna. Heart / Thorax Diaphragm. Abdomen Stomach. Kidneys. Bladder. GROWTH OVERVIEW ----- Exam date GA BPD (mm) HC (mm) AC (mm) FL (mm) HL (mm) EFW (g) 12/27/2023 20w 0d 46.5 52% 169.1 22% 156.8 72% 29.2 12% 28.7 30% 322 42% 01/31/2024 25w 0d 61.8 45% 235.1 49% 222.1 87% 43.1 14% 824 65% 02/28/2024 29w 0d 74.9 71% 287.7 89% 274.0 96% 52.6 12% 1,547 82% 03/27/2024 33w 0d 85.8 86% 333.2 >99% 327.1 >99% 61.8 16% 2,667 96% 04/24/2024 37w 0d 94.9 95% 362.1 >99% 369.2 >99% 69.0 13% 3,870 98% COMMENT ----- Patient's name and date of were verified by the accounts payable technician prior to the exam IMPRESSION ----- Impression: Santa viable intrauterine at 37w 0d in BREECH presentation. Estimated weight is 3870 g (98%ile) with abdominal circumference at the >99%ile. Excessive growth again noted. Amniotic fluid volume is normal amount (Amniotic fluid index = 11.4 cm, maximum vertical pocket = 6.5 cm). NST to follow; see separate report. Recommendation: Continue twice weekly surveillance as planned in OB's office. Fetus is breech with head in maternal LUQ; recommend reviewing delivery plans. Thank you for inviting us to participate in your patient's care. Procedure Note Jennifer Granado MD - 04/24/2024 [facility] FOLLOW UP ----- Pat. Name:Jeff POTTS Date:04/24/2024 10:00am Pat. NO: [id number] MD:JUAN MONSON MD [facility]Stephanie Gordon RDMS :1990Age:33 ----- INDICATION ----- Gestational Diabetes, Insulin Controlled Anxiety, Maternal CODING ----- Diagnoses Z3A.37: Weeks of gestation O99.343: Other mental disorders complicatingpregnancy O24.414: Gestational diabetes mellitus inpregnancy, insulin controlled Z36.3: Encounter for screening formalformations Z3A.37: Weeks of gestation O99.343: Other mental disorders complicatingpregnancy Z36.2: Encounter for other screeningfollow-up Procedures [id number]: Ultrasound, uterus, real time withimage documentation, follow up, transabdominal approach per fetus HISTORY ----- OB History 2. Para 1 T1L1 METHOD ----- Transabdominal ultrasound examination ----- Santa . Number of fetuses: 1 DATING ----- GA by prior [id number] w + 0 d IRINEO by prior assessment:05/15/2024 Ultrasound examination on:04/24/2024 GA by U/S based upon:AC, BPD, Femur GA by U/S38 w + 2 d IRINEO by U/S:05/06/2024 Method of dating:Restore dating from previous exam Assigned:based on stated IRINEO, selected on 12/27/2023 Assigned GA37 w + 0 d Assigned IRINEO:05/15/2024 BIOMETRY ----- BPD 94.9 mm 38w 5d 95%Hadlock OFD 131.4 mm -/- >99%Naeem HC 362.1 mm -/- >99%Hadlock AC 369.2 mm 40w 6d >99%Hadlock Femur 69.0 mm 35w 3d 13%Hadlock HC / AC 0.98 30%Nicolaides Weight Calculation: EFW 3,870 g -/- 98%Hadlock EFW (lb,oz) 8 lb 9 oz EFW by Hadlock ([id number]) Head / Face / Neck Biometry: Billet Recorder 4.7mm Extremities / Bony Struc Biometry: FL / BPD 0.73 FL / HC 0.19 FL / AC 0.19 GENERAL EVALUATION ----- Cardiac activity present. FHR 136 bpm. movements: present.Presentation: breech Placenta: Placental site: right lateral Umbilical cord: Cord vessels: 3 vessel cord. Insertion site: placentalinsertion: normal Amniotic fluid: Amount of AF: normal amount. MVP 6.5 cm. FAB 11.4 cm. Q10.0 cm, Q2 3.9 cm, Q3 6.5 cm, Q4 1.1 cm ANATOMY ----- The following structures appear normal: Head / Neck Cranium. Lateral ventricles. Choroid plexus.Midline falx. Cavum septi pellucidi. Cerebellum. Cisterna magna. Heart / Thorax Diaphragm. Abdomen Stomach. Kidneys. Bladder. GROWTH OVERVIEW ----- Exam date GA BPD (mm) HC (mm) AC (mm)FL (mm) HL (mm) EFW (g) 12/27/2023 20w 0d 46.5 52% 169.1 22% 156.8 72%29.2 12% 28.7 30% 322 42% 01/31/2024 25w 0d 61.8 45% 235.1 49% 222.1 87%43.1 14% 824 65% 02/28/2024 29w 0d 74.9 71% 287.7 89% 274.0 96%52.6 12% 1,547 82% 03/27/2024 33w 0d 85.8 86% 333.2 >99% 327.1 >99%61.8 16% 2,667 96% 04/24/2024 37w 0d 94.9 95% 362.1 >99% 369.2 >99%69.0 13% 3,870 98% COMMENT ----- Patient's name and date of were verified by the accounts payable technician prior tothe exam IMPRESSION ----- Impression: Santa viable intrauterine at 37w 0d in BREECHpresentation. Estimated weight is 3870 g (98%ile) with abdominal circumference atthe >99%ile. Excessive growth again noted. Amniotic fluid volume is normal amount (Amniotic fluid index = 11.4 cm,maximum vertical pocket = 6.5 cm). NST to follow; see separate report. Recommendation: Continue twice weekly surveillance as planned in OB's office. Fetus is breech with head in maternal LUQ; recommend reviewingdelivery plans. Thank you for inviting us to participate in your patient's care. us Stephanie Fleming MD ORDERABLES Final Result from Last 3 Months Insurance [employer] [facility] BLUE ACCESS/TRUE BLUE PPO
[2024-05-12 14:41] LABS: HIV 1/2 Ab P24 Ag Result Negative (Negative)
[2024-05-12 15:06] LABS: Syphilis IgG/IgM Antibody Negative (Negative)
== END 2024-05-12 12:43 | disposition home or self-care (01) ==
PROVIDERS: Visit Provider Obstetrics & Gynecology Gynecology
DX: Z34.93 Encounter for supervision of normal pregnancy, unspecified, third trimester (principal); Z3A.00 Weeks of gestation of pregnancy not specified
CPT/HCPCS: 36415; 85027; 86593; 86703; 86850; 86900; 86901; G0432

== ENCOUNTER 2024-05-13 09:56 | Inpatient (IN) | payer OTHER, BC, SELFPAY ==
[2024-05-13] VITALS (39 sets, daily range): BP systolic 114–150; BP diastolic 69–101; PULSE 56–95; RESP 13–18; TEMP 35.9–36.3; O2SAT 96–100; BMI 30.9
[2024-05-13] MEDS: ACETAMINOPHEN 500 MG TABLET 1000 MG PO (10:30)
[2024-05-13] MEDS: LACTATED RINGERS 1,000 ML 125 ML IV CONT ×2 (10:35→11:55)
--- NOTE | 2024-05-13 10:53 | LDADM ---
This patient, Nicki Nair, was admitted to Labor/Delivery/Recovery 120 on 05/13/24 at 09:56. Plans for labor, pain management and were discussed with patient. Patient/family oriented to hospital policies and general routines including ID bracelet, bed and alarms, visiting hours, pain management, procedures, bathroom and other care routines, personal items, smoking policy, room service/diet and guest tray routines, security routines, and visiting hours. Patient/Family are encouraged to report perceived risks to care and to ask questions if they do not understand what they are told or what they should do. See [facility]BIX for further documentation.
--- OUTSIDE RECORDS SUMMARY | 2024-05-13 11:02 | XMS_ITS | Clinical Summary ---
Author Organization [facility] Address [address] [place] [address] Phone Care Team Providers Care Money Manager Name Role Phone Unavailable Primary Care Provider Unavailabl e Encounters Date Type Department Care Team Description 04/24/2024 10:30 AM CDT - 04/24/2024 11:59 PM CDT Hospital Encounter [facility] Haylee Heck [address] [place] [phone] Stephanie Fleming MD Discharge Disposition: Home or Self Care 04/24/2024 9:56 AM CDT - 04/24/2024 11:59 PM CDT Hospital Encounter [facility] Haylee Heck [address] [place] [phone] Stephanie Fleming MD Discharge Disposition: Home or Self Care 04/23/2024 External Device Data STL ABSTRACTION Provider, Abstract 04/23/2024 External Device Data STL ABSTRACTION Provider, Abstract 04/12/2024 External Device Data STL ABSTRACTION Provider, Abstract 04/11/2024 External Device Data STL ABSTRACTION Provider, Abstract 04/08/2024 External Device Data STL ABSTRACTION Provider, Abstract 03/27/2024 10:34 AM SHOPPER MARKETING MANAGER - 03/27/2024 11:59 PM SHOPPER MARKETING MANAGER Hospital Encounter [facility] Haylee Heck [address] [place] [phone] Stephanie Fleming MD Discharge Disposition: Home or Self Care 03/27/2024 9:53 AM SHOPPER MARKETING MANAGER - 03/27/2024 11:59 PM SHOPPER MARKETING MANAGER Hospital Encounter [facility] Haylee Heck [address] [place] [phone] Liam Marin MD Discharge Disposition: Home or Self Care 03/25/2024 External Device Data STL ABSTRACTION Provider, Abstract 02/28/2024 9:48 AM SHOPPER MARKETING MANAGER - 02/28/2024 11:59 PM SHOPPER MARKETING MANAGER Hospital Encounter [facility] Haylee Heck [address] [place] [phone] Liam Marin MD Discharge Disposition: Home or [...] Sex Assigned at Female 12/27/2023 4:17 PM SHOPPER MARKETING MANAGER Legal Sex Female 2:40 PM SHOPPER MARKETING MANAGER Gender Identity Female 12/27/2023 4:17 PM SHOPPER MARKETING MANAGER Sexual Orientation Straight 12/27/2023 4: 17 PM SHOPPER MARKETING MANAGER Plan of Treatment Health Maintenance Due Date [...] UP PER FETUS Routine 03/27/2024 11:41 AM SHOPPER MARKETING MANAGER Insulin controlled gestational diabetes mellitus (GDM) during , antepartum US MONITORING NST Routine 03/27/2024 11:29 AM SHOPPER MARKETING MANAGER Insulin controlled gestational diabetes mellitus (GDM) during , antepartum US OB FOLLOW UP PER FETUS Routine 02/28/2024 10:15 AM SHOPPER MARKETING MANAGER Insulin controlled gestational diabetes mellitus (GDM) during , antepartum from Last 3 Months Results * US MONITORING NST (04/24/2024 2:01 PM CDT) Only the most recent of2 resultswithin the time period is included. Anatomical Region Laterality Modality Ultrasound 04/24/2024 11:0 8 AM CDT [facility] 04/24/2024 11:18 AM CDT [facility] NST ----- Pat. Name: NICKI POTTS Study Date: 04/24/2024 11:08am Pat. NO: [id number] Referring MD: JUAN MONSON MD Site: [facility] Physician: : 1990 Age: 33 ----- INDICATION ----- Gestational Diabetes, Insulin Controlled Anxiety, Maternal CODING ----- Diagnoses Z3A.37: Weeks of gestation O99.343: Other mental disorders complicating O24.414: Gestational diabetes mellitus in , insulin controlled Z36.3: Encounter for screening for malformations Z3A.37: Weeks of gestation O99.343: Other mental disorders complicating Z36.2: Encounter for other screening follow-up Procedures 22251: NST/ monitoring HISTORY ----- OB History 2. [...] Pat. Name:Jeff POTTS Date:04/24/2024 11:08am Pat. NO: [id number] :JUAN MONSON MD Site:[facility]: :1990Age:33 ----- INDICATION ----- Gestational Diabetes, Insulin Controlled Anxiety, Maternal CODING ----- Diagnoses Z3A.37: Weeks of gestation O99.343: Other mental disorders complicatingpregnancy O24.414: Gestational diabetes mellitus inpregnancy, insulin controlled Z36.3: Encounter for screening formalformations Z3A.37: Weeks of gestation O99.343: Other mental disorders complicatingpregnancy Z36.2: Encounter for other screeningfollow-up Procedures 89067: NST/ monitoring HISTORY ----- OB History 2. Para 1 T1L1 MATERNAL ASSESSMENT ----- Physical Exam Weight 91 kg. BMI 28.70 kg/m . Blood ccmxeroh232/71 mmHg. Heart rate 79 bpm METHOD ----- EFM ----- Santa . Number of fetuses: 1 DATING ----- GA by prior [id number] w + 0 d IRINEO by prior [...] POTTS Study Date: 04/24/2024 10:00am Pat. NO: [id number] Referring MD: JAUN MONSON MD Site: [facility] Physician: Stephanie Gordon RDMS : 1990 Age: 33 ----- INDICATION ----- Gestational Diabetes, Insulin Controlled Anxiety, Maternal CODING ----- Diagnoses Z3A.37: Weeks of gestation O99.343: Other mental disorders complicating O24.414: Gestational diabetes mellitus in , insulin controlled Z36.3: Encounter for screening for malformations Z3A.37: Weeks of gestation O99.343: Other mental disorders complicating Z36.2: Encounter for other screening follow-up Procedures 67143: Ultrasound, uterus, real time with image documentation, [...] 8 lb 9 oz EFW by Hadlock ([id number]) Head / Face / Neck Biometry: Patient Access Specialist 4.7 mm Extremities / Bony Struc Biometry: [...] and date of were verified by the cabin furnishings installer prior to the exam IMPRESSION ----- Impression: [...] Pat. Name:Jeff POTTS Date:04/24/2024 10:00am Pat. NO: [id number] MD:JUAN MONSON [facility] oGrdon RDMS :1990Age:33 ----- INDICATION ----- Gestational Diabetes, Insulin Controlled Anxiety, Maternal CODING ----- Diagnoses Z3A.37: Weeks of gestation O99.343: Other mental disorders complicatingpregnancy O24.414: Gestational diabetes mellitus inpregnancy, insulin controlled Z36.3: Encounter for screening formalformations Z3A.37: Weeks of gestation O99.343: Other mental disorders complicatingpregnancy Z36.2: Encounter for other screeningfollow-up Procedures [id number]: Ultrasound, uterus, real time withimage documentation, follow up, transabdominal approach per fetus HISTORY ----- OB History 2. Para 1 T1L1 METHOD ----- Transabdominal ultrasound examination ----- Santa . Number of fetuses: 1 DATING ----- GA by prior [id number] w + 0 d IRINEO by prior [...] 8 lb 9 oz EFW by Hadlock ([id number]) Head / Face / Neck Biometry: Patient Access Specialist 4.7mm Extremities / Bony Struc Biometry: FL [...] and date of were verified by the cabin furnishings installer prior tothe exam IMPRESSION ----- Impression: Santa [...] Final Result from Last 3 Months Insurance [employer] [facility] BLUE ACCESS/TRUE BLUE PPO
[2024-05-13 11:11] LABS: Glucose Point of Care 78 mg/dl (65-105)
--- NOTE | 2024-05-13 11:42 | P.PNAN_ITS ---
Anes - Initial Pre Proc Eval Procedure: Operation Date: 05/13/24 12:00 Proposed Procedures p Section with Bilateral Salpingectomy - Diana Gonzalez MD Date/Time: 05/13/24 11:42 Surgeon: Diana Gonzalez MD Pre Op Diagnosis: Section Patient Data Age: 33 Gender: F Height: 1.78 m Weight: 97.6 kg Last Vital Signs Temp 35.9 C L 05/13/24 10:30 Pulse 76 05/13/24 11:31 BP 115/101 H 05/13/24 11:31 O2 Del Method Room Air 05/13/24 10:52 Allergies Allergy/AdvReac Type Severity Reaction Status Date / Time No Known Allergies Allergy Mild Verified 04/28/24 15:20 Home Medications ?Medication ?Instructions ?Recorded ?Confirmed ?Type prenat.vits,josette,ewz-hfbj-banmq 1 tablet PO DAILY 04/12/23 05/13/24 History escitalopram oxalate 20 mg tablet 10 mg PO DAILY 03/12/24 05/13/24 History (Lexapro) insulin lispro protamine-lispro 50 unit subcut DAILY 03/12/24 05/13/24 History 100 unit/mL (50-50) subcutaneous susp (Humalog Mix 50-50 Insuln U-100) Laboratory Tests 05/13/24 10:28 POC Capillary Glucose 78 mg/dl (65-105) Patient hx anesthesia problems: none Family hx anesthesia problems: none Results Review: All pre-operative results and documents have been reviewed as part of the pre- operative evaluation. PMFSH Past Medical History Medical History IUP (intrauterine ), incidental Hx of migraines Healthy adult Surgical History Surgical History No history of previous surgery Family History Family History Other Patient denies significant medical history Social History Social History Smoking status: Never smoker Substance use: never Do You Feel Safe in your Home?: Yes Lack of Transportation: No Lack of Food: Never True Current Housing: I Have Housing Concerned About Future Housing: No Difficulty Paying Gas/Electric Bills: No Difficulty Paying for Meds: No Currently Unemployed: No Education: Bachelor's Degree Difficulty w/ Childcare or Family Care: No Spiritual care concerns: No Anes - Eval Final PreProcedure Day of Procedure 05/13/24 11:42 Patient weight: overweight Heart: regular rate and rhythm Lungs: clear to auscultation Airway: Mallampati scale class II Neurological: alert and oriented Last oral intake: >/= 8 hours ASA classification: II Emergent: no Anesthetic plan: proceed Anesthesia type and monitoring: regional spinal and standard monitoring Results Review: All pre-operative results and documents have been reviewed as part of the pre- operative evaluation. Informed Consent: The patient's anesthetic plan and its attendant risks and benefits were discussed with the patient/family/POA. Questions were solicited and answers provided to the satisfaction of the patient/family/POA.
--- NOTE | 2024-05-13 11:45 | WPDHPUPDATE1 ---
History and Physical Update Update Date/Time: 05/13/24 11:45 History and Physical has been reviewed, including an updated exam of the patient. There are NO changes in the patient's condition. Risks, benefits, and alternatives have been discussed and questions answered. Patient agrees to proceed with procedure.
--- NOTE | 2024-05-13 11:46 | P.HP_ITS ---
H&P: HPI History of Present Illness Date/Time: 05/13/24 11:46 Chief Complaint: Breech Requests sterilization Intrauterine at 39-,1/7 week Narrative: The patient is a 3 para 1 aborta 1 at 39-,1/7 with breech presentation. Breech was verified by ultrasound today. Plan is to proceed with a primary C- section. In addition the patient was completed her childbearing and requests sterilization. Will proceed with bilateral salpinges objective me. The has been complicated by gestational diabetes diagnosed in the 1st trimester. She was been on insulin with good control. labs A negative, rubella immune, RPR negative, HIV negative, hepatitis-B surface antigen negative, group B strep negative. Review of Systems Review of Systems: not repeated day of surgery; patient states no changes in status PMFSH Past Medical History Medical History (Updated 05/13/24 @ 11:49 by Diana Gonzalez MD) (normal spontaneous vaginal delivery) Depression Hx of migraines Surgical History Surgical History No history of previous surgery Family History Family History Other Patient denies significant medical history Social History Social History Smoking status: Never smoker Substance use: never Do You Feel Safe in your Home?: Yes Lack of Transportation: No Lack of Food: Never True Current Housing: I Have Housing Concerned About Future Housing: No Difficulty Paying Gas/Electric Bills: No Difficulty Paying for Meds: No Currently Unemployed: No Education: Bachelor's Degree Difficulty w/ Childcare or Family Care: No Spiritual care concerns: No Meds Home Medications and Allergies Home Medications ?Medication ?Instructions ?Recorded ?Confirmed ?Type prenat.vits,josette,cyy-flsf-dipqw 1 tablet PO DAILY 04/12/23 05/13/24 History escitalopram oxalate 20 mg tablet 10 mg PO DAILY 03/12/24 05/13/24 History (Lexapro) insulin lispro protamine-lispro 50 unit subcut DAILY 03/12/24 05/13/24 History 100 unit/mL (50-50) subcutaneous susp (Humalog Mix 50-50 Insuln U-100) Allergies Allergy/AdvReac Type Severity Reaction Status Date / Time No Known Allergies Allergy Mild Verified 04/28/24 15:20 Vital Signs Vital Signs - 24 hr 05/13/24 10:16 05/13/24 10:30 05/13/24 10:52 Temperature 96.7 F L Pulse Rate 95 Blood Pressure 140/82 Oxygen Delivery Room Air 05/13/24 11:16 05/13/24 11:31 Temperature Pulse Rate 71 76 Blood Pressure 123/73 115/101 H Oxygen Delivery Exam Const: General: healthy appearing and alert Orientation/consciousness: patient oriented x3 Resp: Effort & Inspection: normal respiratory effort GI: Inspection: other (Fundal high 40cm) GI Palp: Yes Soft to palpation and No Tenderness to palpation present (GI) Auscultation: other ( heart tones reactive) : External Female Exam: normal external appearance Speculum Exam - Vagina: normal appearance of the vagina and normal vaginal discharge Bimanual Exam- Adnexa, other: normal adnexae and No adnexal tenderness Neuro: General: patient oriented x3 Assessment and Plan Assessment and plan (1) 39 weeks gestation of : Code(s): Z3A.39 - 39 weeks gestation of Status: Acute (2) Breech presentation: Code(s): O32.1XX0 - Maternal care for breech presentation, not applicable or unspecified Status: Acute Assessment and Plan: Plan to proceed with primary section (3) Encounter for sterilization: Code(s): Z30.2 - Encounter for sterilization Status: Acute Assessment and Plan: Plan to proceed with his bilateral salpingectomy
[2024-05-13] MEDS: FAMOTIDINE 20 MG/2 ML VIAL IV PUSH (11:54)
[2024-05-13] MEDS: ONDANSETRON INJ 4 MG/2 ML VIAL IV PUSH (11:54)
[2024-05-13] MEDS: ceFAZolin 2 GM/D5W 50 ML 2 GM/50 ML BAG IVPB (12:03)
--- NOTE | 2024-05-13 12:55 | W.PM.OBCSD ---
OB - Delivery Note Procedure Delivery date: 05/13/24 Pre-op diagnosis: Breech Presentation, Gestational Diabetes (GDMA2) and Other (Intrauterine at 39 1/7 weeks; requests sterilization) Post-op Diagnosis: Same Induction method: None Delivery monitor: External FHT and External Uterine Prior to decision for section, ACOG/SM labor guidelines were considered and discussed with the patient and staff. Decision made to proceed with the section.: Yes Procedure Performed: Primary Primary branch: low cervical, transverse and Other (Bilateral salpingectomy) Surgeon: Diana Gonzalez MD Anesthesia type: Spinal Description of Procedure/Findings: The patient was taken to the operating room and placed under spinal anesthesia in the dorsal supine position with a leftward tilt. Once anesthesia was deemed adequate, she was prepped and draped in the usual sterile fashion. A Pfannenstiel skin incision was made with a scalpel and carried down to the underlying layer fascia which was nicked in the midline. Subcutaneous tissues were made hemostatic using Bovie cautery. Fascial incision was extended laterally using Espinoza scissors. Ochsner was used to tent the fascia which was then dissected off using sharp and blunt dissection. The peritoneum was tented and entered with Metzenbaum scissors. The incision was extended with blunt traction. The bladder blade was placed. The vesicouterine peritoneum was tented with a Peon and entered with Metzenbaum scissors. The bladder flap was created using Metzenbaum scissors laterally and digitally. The bladder blade was replaced. The lower uterine segment was incised in transverse fashion with scalpel. The incision was extended with blunt traction. The membranes are ruptured with clear fluid noted. The 's feet are grasped and delivered through the incision. The was delivered to the scapula while the pest controller assistant applied fundal pressure. The infant was rotated and the right arm delivered spontaneously. The was rotated and the left arm delivered spontaneously. The infant was extended on the abdomen and the head delivered. 30seconds of delayed cord clamping were performed but due to not crying vigorously the cord was clamped and cut and the handed to the waiting nursery team. Cord blood and cord gases were taken. The placenta was removed using manual traction. The uterus was cleared of all clots and debris and exteriorized. The uterine incision was closed using 0 Monocryl in a running locked fashion with the same suture used to imbricate. Good hemostasis is noted. The right tube was grasped with a Nikolay and crossclamped with a Z- clamp. The tube was excised and the pedicle tied off using a Radha stitch and a free tie. The identical procedure was performed on the left side. Good hemostasis is noted. The cul-de-sac and gutters are irrigated and the uterus returned to the abdomen. The incision and the pedicles are again inspected and noted to be hemostatic. The fascia was then closed using 0 Vicryl in a running fashion. Subcutaneous tissues were irrigated and noted to be hemostatic. Skin is closed using 4-0 Vicryl in a subcuticular fashion. Dermaflex was placed over the incision. Sponge, needle, and instrument counts are correct per the OR staff. The patient was taken to recovery in stable condition. The patient received 2g of Ancef prior to incision. Specimen: Yes (Bilateral tubes and placenta) Estimated Blood Loss: 940 Drains: Yes (Don catheter) Packing: No Complications: No immediate complications Condition: Stable Disposition: Floor Baby Date of : 05/13/24 Gestational Age by Date: 39 Infant gender: Female Weight (pounds): 9 Weight (ounces): 13 presentation: breech (Double footling breech) position: Right Mentum Anterior Placenta delivery description: Spontaneous Cord Vessel Description: 3 Vessels and Delayed Cord Clamping (For 30seconds) score one minute: 7 score five minutes: 9
--- NOTE | 2024-05-13 13:01 | P.DS_ITS ---
DS: Admitting Diagnosis Discharge Date 05/16/24 Admitting Diagnosis Intrauterine at 39 weeks Breech presentation Request sterilization DS: Discharge Diagnosis Discharge Diagnosis (1) Delivery by section using transverse incision of lower segment of uterus: Code(s): O82 - Encounter for delivery without indication Status: Acute (2) H/O bilateral salpingectomy: Code(s): Z90.79 - Acquired absence of other genital organ(s) Status: Acute OB - DS: Summary OB Procedures : NST and Other (Diabetes management) OB Procedures Intrapartum: low cervical, transverse and Tubal ligation (Bilateral salpingectomy) OB Procedures: : None Peripartum Data Infant Delivery Method: Section Procedures: Procedures Operation Date: 05/13/24 12:00 <No data on this case meets the specified criteria> complications: none Status at Discharge Functional status at discharge: independent ambulation Overall status at discharge: patient is progressing back to baseline Time Spent with Patient Time attestation: Total time spent providing and/or coordinating discharge services: DS: Data Data Completed and Pending Labs on day of discharge: Labs from last 24 hours 05/13/24 10:28 POC Capillary Glucose 78 Discharge Plan Discharge Attending physician on discharge: Diana Gonzalez Discharging Clinician: Diana Gonzalez Anticipated Discharge Date/Time: 05/16/24 13:04 Patient Disposition: Home Activity: may shower, may drive after 2 weeks and pelvic rest Diet: regular Discharge Instructions: Education: Mom and Baby Guide Given to: Mother Follow-Up: Call your delivering provider's office for an appointment to be seen in: 4 Weeks Mom and baby should come to the [facility] for the follow-up appointment. Appointment Date/Time: May 19, 2024 at 9:00 am What to expect at your follow-up visit: Blood Pressure Check Call [phone] if you are unable to keep your appointment time. BREAST CARE: * Wear a snug supportive bra. * For engorgement discomfort: Breast Feeding: * Apply warm moist washcloths * Express milk as needed to relieve engorgement * Wear loose clothing Bottle Feeding: * May apply ice packs * For sore nipples: * Identify correct latch-on * Apply warm moist washcloths before and after nursing * Air dry nipples after nursing * May apply Lansinoh cream to nipples ABDOMINAL INCISION: (if applicable) * Allow incision to air dry * Do NOT use lotions for powders on your incision * When showering, allow soap and water to run over the incision, but do not wash incision EPISIOTOMY/PERINEAL CARE: * Until bleeding stops, use your loren bottle after urinating * Change your pad frequently throughout the day * You may take sitz baths several times a day (fill your bathtub with warm water and soak for 20 minutes.) Do NOT bathe in the water * No tub baths until seen by your physician - You may shower ACTIVITY: * Rest as much as possible. * Do not exercise or lift anything heavier than your baby (such as laundry or other children.) * Avoid stairs or driving as much as possible. * Do not put anything into the vagina. No douching, tampons, or sexual activity until seen by physician. NOTIFY PHYSICIAN IF YOU HAVE ANY QUESTIONS OR IF ANY OF THE FOLLOWING SYMPTOMS OCCUR: * If your episiotomy or incision becomes red, swollen, or more painful than what you have experienced in the hospital. * If your vaginal bleeding becomes foul smelling. * If your vaginal bleeding becomes more heavy than a period or if your bleeding changes from pink to bright red. However, you may pass an occasional walnut- sized clot once or twice for the first week . * If you experience a sharp, shooting pain in you calves. * If you discover a hard, reddened area on your breast or if you experience flu- like symptoms. DIET: * Eat regular, well-balanced meals. * Drink plenty of fluids daily. If , drink to thirst. Patient viewed the discharge video Mother & Baby Care, The First Two Weeks . Patient was given the opportunity and encouraged to ask questions. Patient verbalized understanding of information shared and has been given the mother/baby guide for home reference. Patient Language: Beninese Stand Alone Forms: General Discharge Information Follow-up/Referrals: Diana Gonzalez MD [Physician] - 1 Week (And 6 week) Discharge Medications: New hydrocodone-acetaminophen 5-325 mg tablet 1 tablet PO Q4H PRN (Reason: pain) Qty: 10 0RF Continued escitalopram oxalate [Lexapro] 20 mg tablet 10 mg PO DAILY Patient Comments: .................taking 20 prenat.vits,josette,nnh-eabe-ubepc Tablet 1 tablet PO DAILY Discontinued Humalog Mix 50-50 Insuln U-100 100 unit/mL (50-50) suspension 50 unit subcut DAILY Date of admission: 05/13/24 09:56 Primary Care Provider: PHYSICIAN,MARKETING AMBASSADOR Admitting Provider: Diana Gonzalez Attending physician on admission: Diana Gonzalez Condition: Stable
[2024-05-13] MEDS: OXYTOCIN 30 UNITS/NS 500 ML 30 UNITS/500 ML BAG 125 UNITS IV CONT (14:02)
[2024-05-13] MEDS: MORPHINE SULFATE INJ (*CRX) 10 MG/ML AMP 3 MG IV PUSH ×2 (14:39→15:03)
[2024-05-13] MEDS: LIDOCAINE 5% PATCH 1 PATCH TRANSDERM (15:30)
--- NOTE | 2024-05-13 15:36 | OBPPTRN ---
Patient transferred to post room # 287 via stretcher. Support person present. Oriented to unit, room, information board, rooming in, admission packet and security measures. Patient verbalizes understanding.
[2024-05-13] MEDS: SIMETHICONE 80 MG TAB.CHEW PO (16:16)
[2024-05-13] MEDS: DOCUSATE SODIUM 100 MG CAPSULE PO (16:16)
[2024-05-13] MEDS: KETOROLAC 15 MG/ML VIAL (*BKC) IV PUSH ×2 (16:16→21:52)
[2024-05-13] MEDS: ACETAMINOPHEN 325 MG TABLET 650 MG PO ×2 (16:16→21:53)
--- NOTE | 2024-05-13 16:50 | PC.NURSE ---
Introductions were made, then consulted with patient to assess needs related to . Mother led the conversation with her?plans to feed?her and the?experience so far. Mother has a 1 year old who was also breastfed. Mother is independent with latching infant but states that moving into positions for is difficult because of her . This RN assisted mother with positioning infant in football position and was able to latch. Encouraged understanding of the benefits of skin to skin, stimulating with massage touch, changing positions to encourage wakefulness, how to watch for early feeding cues, responsive feeding, feeding on demand (aiming for 8-12 times in 24 hours, about every 2-3 hours), milk production, building/maintaining a milk supply, duration of feeding, signs of adequate intake/output and how to record on the feeding sheet. Mother works well with her with encouragement and education. Reviewed positioning and ear, shoulder, hip alignment, supporting the breast to facilitate a deep latch, asymmetrical latch (off-center), leading with the chin with a big, open, wide gape and body close to mother. latched optimally to the [left] breast in [football] position. Education given to the mother of how to visualize the suckling (with good rocking jaw motion), swallows (dropping of the lower jaw) and how to listen for drinking at the breast (the ka sound). Infant was [able] to maintain latch without pain to mother protecting the nipple with optimal positioning and latching. Reviewed comfort measures of healing with a warm, wet washcloth to rinse breast, then leave open to air-dry, good handwashing when or touching the breast/nipples to prevent infection. Mother voiced understanding of skin to skin, stimulating with massage touch, responsive feedings, hand expressed colostrum, talking to infant to encourage if it has been 2 -2.5 hours since the start of the last , to call if infant does not latch, or if there is discomfort with . Resources used for education were facilitated with the [visual educational handouts/ tool/mom and baby guide], Inpatient/outpatient resources provided with business card, feeding sheet, name written on the communication board, and the mom/baby guide. Parents voiced understanding of information, demonstrated learning and will call if there is a request for assistance. Reported to the Primary RN.
[2024-05-13] MEDS: DEXTROSE 5%/0.45% SOD CHL 1,000 ML 125 ML IV CONT (18:42)
[2024-05-13] MEDS: HYDROcodone/acetaminophen (*CRX) 5-325 MG TABLET 1 TAB PO (21:13)
[2024-05-13] MEDS: ESCITALOPRAM OXALATE 10 MG TABLET PO (21:14)
[2024-05-14 01:10] VITALS: BP 147/83; PULSE 77; RESP 16; TEMP 36.6; O2SAT 98
[2024-05-14] MEDS: HYDROcodone/acetaminophen (*CRX) 10-325 MG TABLET 1 TAB PO ×4 (01:10→22:05)
[2024-05-14] MEDS: KETOROLAC 15 MG/ML VIAL (*BKC) IV PUSH ×2 (04:18→10:42)
[2024-05-14] MEDS: ACETAMINOPHEN 325 MG TABLET 650 MG PO ×4 (04:18→21:30)
[2024-05-14 04:26] VITALS: BP 118/70; PULSE 72; RESP 16; TEMP 36.6; O2SAT 98
[2024-05-14] MEDS: MORPHINE SULFATE (*CRX) 2 MG/ML INJ IV PUSH (04:44)
--- NOTE | 2024-05-14 05:01 | PC.NURSE ---
Patient refusing rhogam injection as well as rhogam lab draw. Patient educated on rhogam and the effects that if could have if not given, patient verbalized understanding.
[2024-05-14 05:44] LABS: Basophils Percent Auto 0.1 % (0.2-1.2); Eosinophils Absolute Auto 0.1 K/mm3 (0-0.3); Eosinophils Percent Auto 0.7 % (0-4.4); Hematocrit 29.6 % (37.0-47.0); Hemoglobin 8.6 g/dL (12.0-15.0); Immature Granulocyte Absolute 0.08 K/mm3 (0.00-0.031); Immature Granulocyte Percent A 0.6 % (0-0.5); Lymphocytes Absolute Auto 1.83 K/mm3 (0.9-3.2); Lymphocytes Percent Auto 13.4 % (18.3-44.2); Mean Corpuscular HGB Conc 29.1 g/dl (32-36); Mean Corpuscular Volume 72.2 fl (80-100); Mean Platelet Volume 10.8 fl (7.4-10.4); Monocytes Percent Auto 7.6 % (2.6-8.5); Neutrophils Absolute Auto 10.6 K/mm3 (1.3-6.7); Neutrophils Percent Auto 77.6 % (45.5-73.1); Platelet Count Result 207 k/mm3 (150-375); Red Cell Distribution Width 18.1 % (11.5-14.5); White Blood Count 13.7 K/mm3 (4.5-10.0)
[2024-05-14 05:57] LABS: Band Neutrophils Percent 0 % (0-6); Burr Cells 1+; Ovalocytes 1+; Platelet Estimate Adequate (Adequate); Schistocytes None Seen
[2024-05-14] MEDS: MULTIVIT/MIN/PREN/FOL AC/IRON TABLET 1 TAB PO (07:15)
[2024-05-14] MEDS: HYDROmorphone HCL INJ (*CRX) 1 MG/ML SYR 0.5 MG IV PUSH (07:15)
[2024-05-14] MEDS: SIMETHICONE 80 MG TAB.CHEW PO ×2 (07:15→16:28)
[2024-05-14] MEDS: DOCUSATE SODIUM 100 MG CAPSULE PO ×2 (07:15→16:29)
[2024-05-14] MEDS: POLYSACCHARIDE IRON COMPLEX 150 MG CAPSULE PO ×2 (07:15→16:29)
--- NOTE | 2024-05-14 08:13 | P.PNOB_ITS ---
OB - PN: Subj Subjective Date/time seen: 05/14/24 08:13 Patient comments: pain well controlled (states pain not well controlled; given dilaudid this am) and tolerating diet [place] baby status: other (on IV) OB - PN: Obj Data Labs 05/14/24 04:30 Labs: Laboratory Results - last 24 hr 05/13/24 05/14/24 10:28 04:30 WBC 13.7 H RBC 4.10 L Hgb 8.6 L Hct 29.6 L MCV 72.2 L MCH 21.0 L MCHC 29.1 L RDW 18.1 H Plt Count 207 MPV 10.8 H Immature Gran % (Auto) 0.6 H Neut % (Auto) 77.6 H Lymph % (Auto) 13.4 L [place] % (Auto) 7.6 Eos % (Auto) 0.7 Baso % (Auto) 0.1 L Lymph # (Auto) 1.83 [place] # (Auto) 1.0 H Eos # (Auto) 0.1 Baso # (Auto) 0.0 Abs Immat Gran (auto) 0.08 H Absolute Neuts (auto) 10.6 H Absolute Nucleated RBC 0.000 Band Neutrophils % 0 Nucleated RBC % 0.0 Platelet Estimate Adequate Ovalocytes 1+ [place] Cells 1+ Schistocytes None seen POC Capillary Glucose 78 OB - PN A/P Plan day: 1 Plan: routine care Time Spent With Patient Time: Total time spent is greater than 50% in coordination of care (as documented) at patient's floor/unit and/or counseling patient: Exam 2 Narrative: inc c/d/i : Bimanual exam- vagina & uterus: other (Uterus firm, nt @U)
[2024-05-14 08:20] VITALS: BP 120/78; PULSE 70; RESP 16; TEMP 36.9; O2SAT 98
--- NOTE | 2024-05-14 08:38 | WPDANLDPN2 ---
Anes-Prog Note L&D Date/Time: 05/14/24 08:38 Comfortable throughout: section Neuraxial method: spinal Epidural/Spinal procedure site: clean & non-tender Neuro status: Neuro function grossly intact. Cardiovascular status: normal Respiratory status: normal Airway patency: baseline Mental status: baseline Post-Op hydration status: normal Vital Signs: Last Vital Signs Temp 36.6 C 05/14/24 04:26 Pulse 72 05/14/24 04:26 Resp 16 05/14/24 04:26 BP 118/70 05/14/24 04:26 Pulse Ox 98 05/14/24 04:26 O2 Del Method Room Air 05/13/24 15:15 Pain score (VAS): 5 I/O: Intake & Output 05/13/24 05/14/24 05/14/24 23:59 07:59 15:59 Intake Total 4600 Output Total 225 800 Balance 4375 -800 Post-procedural complaints: none Patient feedback: Patient satisfied with anesthetic care.patient has not urinated since catheter came out. Plan to straight cath if not able to.
--- NOTE | 2024-05-14 08:40 | WPDANLDNPN2 ---
Anes-Prog Note L&D-Neuraxial Date/Time: 05/14/24 08:40 Neuraxial medications: intrathecal PF morphine Opiod-related complaints: none Patient feedback: Patient satisfied with post-operative pain management.
[2024-05-14] MEDS: METOCLOPRAMIDE HCL INJ 10 MG/2 ML VIAL IV PUSH (09:20)
[2024-05-14 12:20] VITALS: BP 107/53; PULSE 62; RESP 16; TEMP 36.3; O2SAT 96
[2024-05-14] MEDS: IBUPROFEN 600 MG TABLET PO ×2 (16:28→21:30)
[2024-05-14] MEDS: LIDOCAINE 5% PATCH 1 PATCH TRANSDERM (18:02)
[2024-05-14] MEDS: ESCITALOPRAM OXALATE 10 MG TABLET PO (21:30)
[2024-05-14 22:05] VITALS: BP 124/75; PULSE 69; RESP 18; TEMP 36.8; O2SAT 97
[2024-05-15] MEDS: IBUPROFEN 600 MG TABLET PO ×4 (03:30→21:43)
[2024-05-15] MEDS: ACETAMINOPHEN 325 MG TABLET 650 MG PO ×4 (03:30→21:44)
[2024-05-15] MEDS: HYDROcodone/acetaminophen (*CRX) 10-325 MG TABLET 1 TAB PO ×2 (07:13→15:22)
[2024-05-15] MEDS: SIMETHICONE 80 MG TAB.CHEW PO ×3 (07:14→15:18)
[2024-05-15 07:15] VITALS: BP 123/66; PULSE 66; RESP 18; TEMP 36.4; O2SAT 97
[2024-05-15] MEDS: DOCUSATE SODIUM 100 MG CAPSULE PO ×2 (07:15→15:18)
[2024-05-15] MEDS: MULTIVIT/MIN/PREN/FOL AC/IRON TABLET 1 TAB PO (07:15)
[2024-05-15] MEDS: POLYSACCHARIDE IRON COMPLEX 150 MG CAPSULE PO ×2 (07:15→15:18)
--- NOTE | 2024-05-15 08:00 | PM.OBPNVD ---
OB - PN: Subj Subjective Date/time seen: 05/15/24 08:00 Interval history: voided this am 200 cc slow stream Patient comments: no complaints and pain well controlled [place] baby status: doing well OB - PN: Obj Data Labs 05/14/24 04:30 OB - PN A/P Assessment and Plan (1) Postoperative urinary retention: Code(s): N99.89 - Other postprocedural complications and disorders of genitourinary system; R33.8 - Other retention of urine Status: Acute Assessment and Plan: Yesterday at 815 notified by RN that patient had not voided and the catheter had been removed at 1 am not 7 am. Instructed RN to straight cath patient and decrease the narcotics. If had to do again to leave in overnight. She had to place boles. First time cathed got 750 cc. Plan day: 2 Plan: routine care Time Spent With Patient Time: Total time spent is greater than 50% in coordination of care (as documented) at patient's floor/unit and/or counseling patient: Exam Narrative: inc c/d/i : Bimanual exam- vagina & uterus: other (Uterus firm, nt @U)
--- NOTE | 2024-05-15 08:40 | PC.NURSE ---
Met with patient to assess needs. Mom is mostly pumping and bottle feeding. She has concerns that her milk isn't in yet and that her breasts don't feel full. We discussed that it can be 3-5 days before she feels fullness and increased milk production. She is using a 17mm flange insert in her pump flange and is complaining of some nipple tenderness. Encouraged her to try the 21mm flange at the next pumping session to see if it is more comfortable and allows greater milk expression. Patient is advised to pump consistently for good milk production and initiation. Mom states that she will call out if she puts baby to breast and needs assistance or a latch check. She feels comfortable with pump use and we reviewed the initiation setting for use before she has copious milk production. Patient declines any other questions or concerns at this time. Updated RN.
[2024-05-15] MEDS: HYDROcodone/acetaminophen (*CRX) 5-325 MG TABLET 1 TAB PO ×2 (11:47→21:44)
[2024-05-15] MEDS: LIDOCAINE 5% PATCH 1 PATCH TRANSDERM (12:05)
[2024-05-15 18:30] VITALS: BP 144/83; PULSE 74; RESP 18; TEMP 36.8; O2SAT 98
[2024-05-15] MEDS: ESCITALOPRAM OXALATE 10 MG TABLET PO (21:45)
[2024-05-16] MEDS: ACETAMINOPHEN 325 MG TABLET 650 MG PO (03:03)
[2024-05-16] MEDS: HYDROcodone/acetaminophen (*CRX) 5-325 MG TABLET 1 TAB PO (03:03)
[2024-05-16] MEDS: IBUPROFEN 600 MG TABLET PO (03:04)
[2024-05-16 07:45] VITALS: BP 133/80; PULSE 62; RESP 16; TEMP 36.3; O2SAT 98
--- NOTE | 2024-05-16 12:05 | PC.NURSE ---
1205 Per mother baby did well through the night at the breast but also received formula bottles after she breastfed due to her history of low blood sugars after . Mother works well with her infant and is feeding appropriately for growth of and understands stimulating infant to eat if needed, she latched baby optimally to the [left] breast in [cross cradle] position. was [able] to maintain latch without pain to mother protecting the nipple with optimal positioning and latching. Reviewed comfort measures of healing with a warm, wet washcloth to rinse breast, then leave open to air-dry, good handwashing when or touching the breast/nipples to prevent infection. Resources used for education were facilitated with the [visual educational handouts/ tool/mom and baby guide], Inpatient/outpatient resources provided with feeding sheet, name written on the communication board, and the mom/baby guide. has had appropriate feedings in the last 24 hours meets the outcomes for weight, output, blood sugar and jaundice at this time. Reinforced understanding of milk production, transition of milk, signs of adequate intake, transition of stool, prevention/relief of engorgement, plugged ducts, mastitis, responsive watching for feeding cues, the different methods of stimulating to breastfeed 1-3 hours after the start of the last feeding, community resources, and when to call a provider using the resource of the feeding sheet along with the mom and baby guide. Mother voiced understanding of the information shared, is confident to continue effectively her at home, when to call for assistance, denies any additional assistance or education at this time. Reported to the Primary RN.
--- NOTE | 2024-05-16 12:34 | P.PNOB_ITS ---
OB - PN: Subj Subjective Date/time seen: 05/16/24 12:34 Interval history: voiding normally Patient comments: no complaints and pain well controlled [place] baby status: doing well OB - PN: Obj Data Labs 05/14/24 04:30 OB - PN A/P Plan day: 3 Plan: routine care and discharge home Time Spent With Patient Time: Total time spent is greater than 50% in coordination of care (as documented) at patient's floor/unit and/or counseling patient: Exam 2 Narrative: inc c/d/i : Bimanual exam- vagina & uterus: other (Uterus firm, nt @U)
== END 2024-05-16 14:15 | disposition home or self-care (01) | DRG 785 ==
LOC: ANHLDR 13:04 → ANHOB2 15:39
PROVIDERS: Admitting Provider Obstetrics & Gynecology Gynecology; Visit Provider Obstetrics & Gynecology Gynecology
PROC: 10D00Z1 Extraction of Products of Conception, Low, Open Approach (ICD-10-PCS; CPT 59514; principal; 2024-05-13 12:00)
DX: O32.8XX0 Maternal care for other malpresentation of fetus, not applicable or unspecified (principal); O24.424 Gestational diabetes mellitus in childbirth, insulin controlled; Z30.2 Encounter for sterilization; Z3A.39 39 weeks gestation of pregnancy; Z37.0 Single live birth; R33.8 Other retention of urine
CPT/HCPCS: 36415; 82948; 85025; 88302; 88307; A9270; J0690; J1171; J1200; J1885; J2270; J2274; J2371; J2405; J2590; J2765; J7120